=== PATIENT | female | born 1965 | race Caucasian/White ===

== ENCOUNTER 2016-05-27 21:37 | Inpatient (IN) | payer OTHER ==
[~2016-05-27] VITALS: Ht 175.3 cm; Wt 71.0 kg
[~2016-05-27 21:37] MED LIST: ALBUTEROL SULF8.5 GM IH; ALPRAZOLAM1 MG PO; AMBIEN5 MG PO; ATARAX,VISTARIL25 MG PO; ATIVAN0.5 MG PO; AZITHROMYCIN250 MG1 PO; B-1100 MG PO; BLOOD PRESSURE MED PO; BP MEDICATION; CELEXA20 MG PO; CHLORDIAZEPOXID25 MG PO; CLONAZEPAM0.5 MG PO; FLOVENT 11120 INHALA IH; FLOVENT 22120 INHALA IH; FLOVENT 44120 INHALA IH; FLOVENT DISKUS1 DISK IH; FOLIC ACID1 MG PO; GABAPENTIN300 MG PO; HYDROCODON-ACE1 EAC7 PO; INDERAL20 MG PO; KEFLEX500 MG PO; KLONOPIN0.5 M1 PO; LEVAQUIN500 MG PO; LEVAQUIN750 MG PO; LEVOFLOXACIN500 MG PO; LIBRIUM25 MG PO; LOPRESSOR50 MG PO; MACROBID100 MG PO; MEDROL DOSEPAK4 MG PO; METOPROLOL TART50 MG PO; MOBIC15 MG PO; MOTRIN800 MG PO; NABUMETONE750 MG PO; NAPROSYN500 MG PO; NICOTINE PATCH1 EAC2 TD; NOHOMEMEDS; PERCOCET 5/31 TABLET PO; PREDNISONE20 MG PO; PROAIR HFA8.5 GM IH; QUETIAPINE FUMA25 MG PO; QUETIAPINE FUMA50 MG PO; ROBITUSSIN100 MG/5 M PO; SEROQUEL12.5 MG PO; SEROQUEL50 MG PO; SERTRALINE HCL50 MG PO; SPECTRAVITE1 EAC3 PO; THERAGRAN1 TABLET PO; THIAMINE HCL100 MG PO; TRAMADOL HCL50 MG PO; TRAZODONE HCL50 MG PO; ULTRAM50 MG PO; VENTOLIN HFA18 GM IH; VICODIN 5-3001 EACH PO; VITAMIN B-1100 MG PO; XANAX0.25 MG PO; ZESTRIL10 MG PO; ZITHROMAX Z-PA250 MG PO; [UNRECOGNIZED DRUG - OTHER] PO; high blood pressure PO
[2016-05-27 22:05] LABS: HEMATOCRIT 40.1 % (36.0-46.0); MCH 31.5 PG (29.0-34.0); MCHC 34.2 G/DL (30.0-36.0); MCV 92.2 FL (83-99); RBC DIS.WIDTH-CV 13.9 % (11.8-14.6); RED BLOOD COUNT 4.35 M/uL (3.80-5.20); WHITE BLOOD COUNT 4.1 K/uL (4.1-10.2)
[2016-05-27 22:09] LABS: POINT-OF-CARE METER ID UU13113702
[2016-05-27 22:19] LABS: CHLORIDE 100 mEq/L (99-109); SODIUM 142 mEq/L (136-147)
[2016-05-27 22:22] LABS: GLUCOSE 99 mg/dL (70-99)
[2016-05-27 22:23] LABS: ANION GAP 12 MEQ/L (2-14)
[2016-05-27 22:24] LABS: TOTAL BILIRUBIN 0.4 mg/dL (0.0-1.0)
[2016-05-27 22:25] LABS: SERUM ETHYL ALCOHOL 397 mg/dL
[2016-05-27 22:26] LABS: ALKALINE PHOSPHATASE 73 IU/L (3-129); GFR ESTIMATE (CALCULATED) > 59 mL/min/
[2016-05-27 22:27] LABS: UREA NITROGEN (BUN) 6 mg/dL (9-23)
[2016-05-27 22:29] LABS: SALICYLATE < 5.0 MG/DL (15-30)
[2016-05-27 22:35] LABS: POTASSIUM 2.4 mEq/L (3.7-5.4)
[2016-05-28 00:35] LABS: IMM.PLATELET FRACTION 6.1 (1-7); PLATELET COUNT 42 K/uL (156-360)
[2016-05-28 02:56] LABS: BASE EXCESS 3.7 mEq/L (-3 to +3); BICARBONATE 28.5 mEq/L (22-26); CARBOXY HGB 4.1 % (0-5); METHEMOGLOBIN 0.8 % (0-1.5); PCO2 43 mm Hg (35-45); PO2 66 mm Hg (80-100); pH 7.43 (7.35-7.45)
[2016-05-28 02:57] LABS: COMMENTS - BLOOD GASES C+A+; DEVICE NC; O2 FLOW 4 L/MIN; SITE RR; TOTAL RESP RATE 26 resp/min
[2016-05-28 03:31] LABS: INFLUENZA A VIRAL ANTIGEN NEGATIVE; INFLUENZA B VIRAL ANTIGEN NEGATIVE
[2016-05-28 03:53] LABS: ADD MIUA? YES; BILIRUBIN NEGATIVE; BLOOD SMALL; COLOR AMBER ((YELLOW)); GLUCOSE (STRIP) NEGATIVE; KETONES NEGATIVE; LEUKOCYTES MODERATE; NITRITE POSITIVE; PROTEIN (STRIP) 30; SPECIFIC GRAVITY 1.014 (1.000-1.030)
[2016-05-28 04:00] LABS: AMPHETAMINE NEGATIVE (500 ng/mL); BENZODIAZEPINES NEGATIVE (150 ng/mL); COCAINE NEGATIVE (150 ng/mL); METHAMPHETAMINE NEGATIVE (500 ng/mL); OPIATES (MORPHINE) NEGATIVE (100 ng/mL); PHENCYCLIDINE NEGATIVE (25 ng/mL); THC CANNABINOIDS PRESUMPTIVE POSITIVE (50 ng/mL)
[2016-05-28 04:01] LABS: ADD MEDTOX COMMENT Y; BARBITURATES NEGATIVE (200 ng/mL); INTERNAL CONTROLS VALID? YES; METHADONE NEGATIVE (200 ng/mL); OXYCODONE NEGATIVE (100 ng/mL); PROPOXYPHENE NEGATIVE (300 ng/mL); TRICYCLIC ANTIDEPRESSANTS PRESUMPTIVE POSITIVE (300 ng/mL)
[2016-05-28 04:09] LABS: BACTERIA 3+ /HPF; EPITHELIAL CELLS RARE /HPF; MUCUS 4+ /LPF; RED BLOOD CELLS 0-5 /HPF (0-5); UCUL ADDED? NO; WHITE BLOOD CELLS 0-5 /HPF (0-5)
[2016-05-28 06:03] VITALS: BP 157/80
[2016-05-28 10:11] LABS: HEMATOCRIT 39.3 % (36.0-46.0); MCH 31.7 PG (29.0-34.0); MCHC 34.1 G/DL (30.0-36.0); MCV 92.9 FL (83-99); RBC DIS.WIDTH-CV 14.1 % (11.8-14.6); RBC DIS.WIDTH-SD 47.8 % (39-53); RED BLOOD COUNT 4.23 M/uL (3.80-5.20)
[2016-05-28 10:12] LABS: EOSINOPHIL (%) 0.1 % (0-5); IMMATURE GRANULOCYTE (%) 0.8 % (0.0-0.7); IMMATURE GRANULOCYTE COUNT 0.1 K/uL; INSTRUMENT ABS NEUTROPHIL CT 6.5 K/uL; LYMPHOCYTE COUNT 0.8 K/uL (1.0-2.8); MONOCYTE (%) 4.5 % (3-12); MONOCYTE COUNT 0.4 K/uL (0-0.8); NEUTROPHIL (%) 83.5 % (45-76); NEUTROPHIL COUNT 6.5 K/uL (1.8-6.4)
[2016-05-28 10:15] LABS: WHITE BLOOD COUNT 7.8 K/uL (4.1-10.2)
[2016-05-28 10:41] LABS: ANION GAP 16 MEQ/L (2-14); CHLORIDE 97 MEQ/L (99-109); GFR ESTIMATE (CALCULATED) > 59 mL/min/; GLUCOSE 118 mg/dL (70-99); SAMPLE HEMOLYSIS CHECK 0; SAMPLE ICTERIC CHECK 0; SAMPLE LIPEMIA CHECK 0; SODIUM 136 MEQ/L (136-147); UREA NITROGEN (BUN) 4 mg/dL (9-23)
[2016-05-28 10:42] LABS: POTASSIUM 3.3 MEQ/L (3.7-5.4)
[2016-05-28 10:43] LABS: MAGNESIUM 0.7 mg/dl (1.3-2.7)
[2016-05-28 11:25] LABS: IMM.PLATELET FRACTION 5.3 (1-7); MEAN PLAT.VOLUME 11.2 uM^3 (9.5-12.4); PLAT.SUFFICIENCY DECREASED; PLATELET COUNT 33 K/uL (156-360)
[2016-05-28 15:37] VITALS: BP 136/86
[2016-05-28 19:58] LABS: ANION GAP 11 MEQ/L (2-14); CHLORIDE 94 MEQ/L (99-109); GFR ESTIMATE (CALCULATED) > 59 mL/min/; GLUCOSE 107 mg/dL (70-99); POTASSIUM 2.7 MEQ/L (3.7-5.4); SAMPLE HEMOLYSIS CHECK 0; SAMPLE ICTERIC CHECK 0; SAMPLE LIPEMIA CHECK 0; SODIUM 134 MEQ/L (136-147); UREA NITROGEN (BUN) 4 mg/dL (9-23)
[2016-05-28 20:04] LABS: MAGNESIUM 1.9 mg/dl (1.3-2.7)
[2016-05-28 20:15] VITALS: BP 125/86
[2016-05-29] VITALS (15 sets, daily range): BP systolic 111–159; BP diastolic 55–110
[2016-05-29 07:22] LABS: BASOPHIL COUNT 0.1 K/uL (0-0.1); EOSINOPHIL (%) 0.1 % (0-5); HEMATOCRIT 38.7 % (36.0-46.0); IMMATURE GRANULOCYTE (%) 1.5 % (0.0-0.7); IMMATURE GRANULOCYTE COUNT 0.1 K/uL; INSTRUMENT ABS NEUTROPHIL CT 7.1 K/uL; LYMPHOCYTE COUNT 1.3 K/uL (1.0-2.8); MCH 31.4 PG (29.0-34.0); MCHC 34.1 G/DL (30.0-36.0); MCV 92.1 FL (83-99); MONOCYTE (%) 4.4 % (3-12); MONOCYTE COUNT 0.4 K/uL (0-0.8); NEUTROPHIL (%) 78.9 % (45-76); NEUTROPHIL COUNT 7.1 K/uL (1.8-6.4); RBC DIS.WIDTH-CV 13.9 % (11.8-14.6)
[2016-05-29 08:08] LABS: ANION GAP 13 MEQ/L (2-14); CHLORIDE 96 MEQ/L (99-109); GFR ESTIMATE (CALCULATED) > 59 mL/min/; GLUCOSE 98 mg/dL (70-99); SAMPLE HEMOLYSIS CHECK 0; SAMPLE ICTERIC CHECK 0; SAMPLE LIPEMIA CHECK 0; SODIUM 134 MEQ/L (136-147); UREA NITROGEN (BUN) 5 mg/dL (9-23)
[2016-05-29 08:16] LABS: MAGNESIUM 1.3 mg/dl (1.3-2.7); POTASSIUM 3.6 MEQ/L (3.7-5.4)
[2016-05-29 08:20] LABS: MEAN PLAT.VOLUME 12.1 uM^3 (9.5-12.4); PLATELET COUNT 32 K/uL (156-360)
[2016-05-29 08:32] LABS: TROP-I INTERPRETATION NEGATIVE; TROPONIN-I 0.02 ng/mL (0.0-0.30)
[2016-05-29 10:49] LABS: BASE EXCESS -1.4 mEq/L (-3 to +3); BICARBONATE 22.8 mEq/L (22-26); CARBOXY HGB 2.5 % (0-5); METHEMOGLOBIN 1.2 % (0-1.5); pH 7.41 (7.35-7.45)
[2016-05-29 10:50] LABS: COMMENTS - BLOOD GASES A+C+; DEVICE NRB MASK; FI02 100 %; O2 FLOW 15 L/MIN; PCO2 36 mm Hg (35-45); PO2 146 mm Hg (80-100); SITE LR; TOTAL RESP RATE 50 resp/min
[2016-05-29 14:14] LABS: METH RESISTANT S AUREUS PCR NEGATIVE (NEGATIVE)
[2016-05-29 14:15] LABS: PROBE CHECK PASS; SPECIMEN PROCESSING CONTROL PASS
[2016-05-30] VITALS (20 sets, daily range): BP systolic 113–144; BP diastolic 83–112
[2016-05-30 04:07] LABS: BASE EXCESS -0.9 mEq/L (-3 to +3); BICARBONATE 21.6 mEq/L (22-26); CARBOXY HGB 2.4 % (0-5); METHEMOGLOBIN 1.3 % (0-1.5); pH 7.48 (7.35-7.45)
[2016-05-30 04:08] LABS: COMMENTS - BLOOD GASES C+; DEVICE VM; FI02 40 %; O2 FLOW 8 L/MIN; PCO2 29 mm Hg (35-45); PO2 69 mm Hg (80-100); SITE LR; TOTAL RESP RATE 50 resp/min
[2016-05-30 04:18] LABS: EOSINOPHIL (%) 0 % (0-5); HEMATOCRIT 38.3 % (36.0-46.0); IMMATURE GRANULOCYTE (%) 1.2 % (0.0-0.7); IMMATURE GRANULOCYTE COUNT 0.1 K/uL; INSTRUMENT ABS NEUTROPHIL CT 8.4 K/uL; LYMPHOCYTE COUNT 0.5 K/uL (1.0-2.8); MCH 31.6 PG (29.0-34.0); MCHC 33.9 G/DL (30.0-36.0); MCV 93.2 FL (83-99); MONOCYTE (%) 1.9 % (3-12); MONOCYTE COUNT 0.2 K/uL (0-0.8); NEUTROPHIL (%) 91.3 % (45-76); NEUTROPHIL COUNT 8.4 K/uL (1.8-6.4); RBC DIS.WIDTH-CV 13.7 % (11.8-14.6); RBC DIS.WIDTH-SD 46.5 % (39-53); RED BLOOD COUNT 4.11 M/uL (3.80-5.20); WHITE BLOOD COUNT 9.2 K/uL (4.1-10.2)
[2016-05-30 04:24] LABS: CHLORIDE 104 mEq/L (99-109)
[2016-05-30 04:28] LABS: ANION GAP 17 MEQ/L (2-14)
[2016-05-30 04:30] LABS: ALKALINE PHOSPHATASE 67 IU/L (3-129); GFR ESTIMATE (CALCULATED) > 59 mL/min/
[2016-05-30 04:32] LABS: UREA NITROGEN (BUN) 11 mg/dL (9-23)
[2016-05-30 04:33] LABS: GLUCOSE 152 mg/dL (70-99); SODIUM 141 mEq/L (136-147); TOTAL BILIRUBIN 1.7 mg/dL (0.0-1.0)
[2016-05-30 05:09] LABS: MAGNESIUM 1.6 mg/dL (1.3-2.7)
[2016-05-30 05:26] LABS: TROP-I INTERPRETATION NEGATIVE; TROPONIN-I < 0.01 ng/mL (0.0-0.30)
[2016-05-30 05:34] LABS: PLAT.SUFFICIENCY DECREASED
[2016-05-30 05:37] LABS: MEAN PLAT.VOLUME 12.2 uM^3 (9.5-12.4); PLATELET COUNT 40 K/uL (156-360)
[2016-05-30 15:54] LABS: HEMATOCRIT 37.3 % (36.0-46.0); MCHC 34.3 G/DL (30.0-36.0); MCV 93.3 FL (83-99); MEAN PLAT.VOLUME 12.3 uM^3 (9.5-12.4); PLATELET COUNT 51 K/uL (156-360); RBC DIS.WIDTH-CV 13.7 % (11.8-14.6); RBC DIS.WIDTH-SD 47.4 % (39-53); WHITE BLOOD COUNT 7.3 K/uL (4.1-10.2)
[2016-05-30 16:43] LABS: ANION GAP 13 MEQ/L (2-14); CHLORIDE 103 MEQ/L (99-109); GFR ESTIMATE (CALCULATED) > 59 mL/min/; GLUCOSE 200 mg/dL (70-99); MAGNESIUM 1.6 mg/dl (1.3-2.7); SAMPLE HEMOLYSIS CHECK 0; SAMPLE ICTERIC CHECK 0; SAMPLE LIPEMIA CHECK 0; SODIUM 140 MEQ/L (136-147); UREA NITROGEN (BUN) 16 mg/dL (9-23)
[2016-05-30 16:44] LABS: POTASSIUM 2.9 MEQ/L (3.7-5.4)
[2016-05-31] VITALS (24 sets, daily range): BP systolic 111–143; BP diastolic 81–111
[2016-05-31 07:15] LABS: ALKALINE PHOSPHATASE 48 IU/L (3-129); ANION GAP 11 MEQ/L (2-14); CHLORIDE 103 MEQ/L (99-109); GFR ESTIMATE (CALCULATED) > 59 mL/min/; GLUCOSE 183 mg/dL (70-99); POTASSIUM 3.1 MEQ/L (3.7-5.4); SAMPLE HEMOLYSIS CHECK 0; SAMPLE ICTERIC CHECK 0; SAMPLE LIPEMIA CHECK 0; SODIUM 141 MEQ/L (136-147); TOTAL BILIRUBIN 1.4 MG/DL (0.0-1.0); UREA NITROGEN (BUN) 16 mg/dL (9-23)
[2016-05-31 07:16] LABS: MAGNESIUM 1.9 mg/dl (1.3-2.7)
[2016-05-31 07:17] LABS: EOSINOPHIL (%) 0 % (0-5); HEMATOCRIT 34.8 % (36.0-46.0); IMMATURE GRANULOCYTE (%) 0.4 % (0.0-0.7); INSTRUMENT ABS NEUTROPHIL CT 4.4 K/uL; LYMPHOCYTE COUNT 0.4 K/uL (1.0-2.8); MCH 31.5 PG (29.0-34.0); MCHC 33.6 G/DL (30.0-36.0); MCV 93.8 FL (83-99); MEAN PLAT.VOLUME 12.4 uM^3 (9.5-12.4); MONOCYTE (%) 4.4 % (3-12); MONOCYTE COUNT 0.2 K/uL (0-0.8); NEUTROPHIL (%) 87.2 % (45-76); NEUTROPHIL COUNT 4.4 K/uL (1.8-6.4); PLATELET COUNT 65 K/uL (156-360); RBC DIS.WIDTH-CV 13.6 % (11.8-14.6); RBC DIS.WIDTH-SD 46.3 % (39-53); RED BLOOD COUNT 3.71 M/uL (3.80-5.20)
[2016-06-01] VITALS (23 sets, daily range): BP systolic 124–155; BP diastolic 86–107
[2016-06-01 06:10] LABS: EOSINOPHIL (%) 0 % (0-5); HEMATOCRIT 35.1 % (36.0-46.0); IMMATURE GRANULOCYTE (%) 0.4 % (0.0-0.7); INSTRUMENT ABS NEUTROPHIL CT 4.1 K/uL; LYMPHOCYTE COUNT 0.5 K/uL (1.0-2.8); MCHC 34.5 G/DL (30.0-36.0); MCV 92.9 FL (83-99); MEAN PLAT.VOLUME 11.9 uM^3 (9.5-12.4); MONOCYTE (%) 9.3 % (3-12); MONOCYTE COUNT 0.5 K/uL (0-0.8); NEUTROPHIL (%) 80.6 % (45-76); NEUTROPHIL COUNT 4.1 K/uL (1.8-6.4); NRBC (%) 0.4 /100 WBC (0-0); RBC DIS.WIDTH-CV 13.5 % (11.8-14.6); RBC DIS.WIDTH-SD 45.6 % (39-53); RED BLOOD COUNT 3.78 M/uL (3.80-5.20)
[2016-06-01 06:12] LABS: ALKALINE PHOSPHATASE 42 IU/L (3-129); ANION GAP 13 MEQ/L (2-14); CHLORIDE 98 MEQ/L (99-109); GFR ESTIMATE (CALCULATED) > 59 mL/min/; GLUCOSE 171 mg/dL (70-99); POTASSIUM 2.8 MEQ/L (3.7-5.4); SAMPLE HEMOLYSIS CHECK 0; SAMPLE ICTERIC CHECK 0; SAMPLE LIPEMIA CHECK 0; SODIUM 139 MEQ/L (136-147); TOTAL BILIRUBIN 1.2 MG/DL (0.0-1.0); UREA NITROGEN (BUN) 16 mg/dL (9-23)
[2016-06-01 06:13] LABS: MAGNESIUM 1.4 mg/dl (1.3-2.7)
[2016-06-01 06:20] LABS: PLATELET COUNT 91 K/uL (156-360)
[2016-06-01 10:27] LABS: BASE EXCESS 9.6 mEq/L (-3 to +3); BICARBONATE 32.1 mEq/L (22-26); CARBOXY HGB 2.4 % (0-5); COMMENTS - BLOOD GASES +C; DEVICE NC; METHEMOGLOBIN 1.3 % (0-1.5); O2 FLOW 5 L/MIN; PCO2 35 mm Hg (35-45); PO2 62 mm Hg (80-100); SITE RR +A; TOTAL RESP RATE 24 resp/min; pH 7.57 (7.35-7.45)
[2016-06-02] VITALS (23 sets, daily range): BP systolic 101–157; BP diastolic 66–108
[2016-06-02 06:06] LABS: ALKALINE PHOSPHATASE 45 IU/L (3-129); ANION GAP 10 MEQ/L (2-14); CHLORIDE 90 MEQ/L (99-109); GFR ESTIMATE (CALCULATED) > 59 mL/min/; GLUCOSE 170 mg/dL (70-99); MAGNESIUM 1.5 mg/dl (1.3-2.7); POTASSIUM 2.8 MEQ/L (3.7-5.4); SAMPLE HEMOLYSIS CHECK 0; SAMPLE ICTERIC CHECK 0; SAMPLE LIPEMIA CHECK 0; SODIUM 134 MEQ/L (136-147); TOTAL BILIRUBIN 1.1 MG/DL (0.0-1.0); UREA NITROGEN (BUN) 11 mg/dL (9-23)
[2016-06-02 06:31] LABS: EOSINOPHIL (%) 0 % (0-5); IMMATURE GRANULOCYTE (%) 1.2 % (0.0-0.7); IMMATURE GRANULOCYTE COUNT 0.1 K/uL; INSTRUMENT ABS NEUTROPHIL CT 3.2 K/uL; LYMPHOCYTE COUNT 0.6 K/uL (1.0-2.8); MCH 31.3 PG (29.0-34.0); MCHC 34.9 G/DL (30.0-36.0); MCV 89.7 FL (83-99); MONOCYTE (%) 11.3 % (3-12); MONOCYTE COUNT 0.5 K/uL (0-0.8); NEUTROPHIL (%) 74.4 % (45-76); NEUTROPHIL COUNT 3.2 K/uL (1.8-6.4); RBC DIS.WIDTH-CV 12.7 % (11.8-14.6); RBC DIS.WIDTH-SD 41.9 % (39-53); RED BLOOD COUNT 4.35 M/uL (3.80-5.20); WHITE BLOOD COUNT 4.3 K/uL (4.1-10.2)
[2016-06-02 07:36] LABS: PLAT.SUFFICIENCY DECREASED
[2016-06-02 07:39] LABS: PLATELET COUNT 123 K/uL (156-360)
[2016-06-02 09:49] LABS: POINT-OF-CARE METER ID UU14162636
[2016-06-02 16:06] LABS: DIRECT BILIRUBIN 0.2 mg/dL (0.0-0.3); TOTAL BILIRUBIN 1.1 MG/DL (0.0-1.0)
[2016-06-02 16:13] LABS: ALKALINE PHOSPHATASE 42 IU/L (3-129)
[2016-06-03] VITALS (22 sets, daily range): BP systolic 128–168; BP diastolic 82–118
[2016-06-03 06:56] LABS: EOSINOPHIL (%) 0 % (0-5); HEMATOCRIT 42.6 % (36.0-46.0); IMMATURE GRANULOCYTE COUNT 0.1 K/uL; INSTRUMENT ABS NEUTROPHIL CT 4.9 K/uL; LYMPHOCYTE COUNT 0.5 K/uL (1.0-2.8); MCH 31.6 PG (29.0-34.0); MCHC 34.7 G/DL (30.0-36.0); MEAN PLAT.VOLUME 11.1 uM^3 (9.5-12.4); MONOCYTE (%) 9.5 % (3-12); MONOCYTE COUNT 0.6 K/uL (0-0.8); NEUTROPHIL (%) 80.6 % (45-76); NEUTROPHIL COUNT 4.9 K/uL (1.8-6.4); PLAT.SUFFICIENCY ADEQUATE; RBC DIS.WIDTH-SD 42.7 % (39-53); RED BLOOD COUNT 4.68 M/uL (3.80-5.20)
[2016-06-03 06:59] LABS: ALKALINE PHOSPHATASE 46 IU/L (3-129); ANION GAP 11 MEQ/L (2-14); CHLORIDE 95 MEQ/L (99-109); GFR ESTIMATE (CALCULATED) > 59 mL/min/; GLUCOSE 158 mg/dL (70-99); MAGNESIUM 1.6 mg/dl (1.3-2.7); POTASSIUM 3.2 MEQ/L (3.7-5.4); SAMPLE HEMOLYSIS CHECK 0; SAMPLE ICTERIC CHECK 0; SAMPLE LIPEMIA CHECK 0; SODIUM 135 MEQ/L (136-147); TOTAL BILIRUBIN 1.1 MG/DL (0.0-1.0); UREA NITROGEN (BUN) 14 mg/dL (9-23)
[2016-06-03 07:04] LABS: PLATELET COUNT 168 K/uL (156-360)
[2016-06-04] VITALS (23 sets, daily range): BP systolic 106–149; BP diastolic 78–106
[2016-06-04 04:56] LABS: EOSINOPHIL (%) 0.2 % (0-5); IMMATURE GRANULOCYTE COUNT 0.1 K/uL; INSTRUMENT ABS NEUTROPHIL CT 4.6 K/uL; LYMPHOCYTE COUNT 0.7 K/uL (1.0-2.8); MCH 31.2 PG (29.0-34.0); MCHC 33.7 G/DL (30.0-36.0); MCV 92.6 FL (83-99); MEAN PLAT.VOLUME 10.8 uM^3 (9.5-12.4); MONOCYTE (%) 11.5 % (3-12); MONOCYTE COUNT 0.7 K/uL (0-0.8); NEUTROPHIL (%) 75.6 % (45-76); NEUTROPHIL COUNT 4.6 K/uL (1.8-6.4); RBC DIS.WIDTH-CV 13.2 % (11.8-14.6); RBC DIS.WIDTH-SD 45.1 % (39-53); RED BLOOD COUNT 4.43 M/uL (3.80-5.20)
[2016-06-04 04:59] LABS: PLATELET COUNT 259 K/uL (156-360)
[2016-06-04 05:01] LABS: CHLORIDE 102 mEq/L (99-109); SODIUM 139 mEq/L (136-147)
[2016-06-04 05:02] LABS: MAGNESIUM 1.7 mg/dL (1.3-2.7)
[2016-06-04 05:04] LABS: GLUCOSE 154 mg/dL (70-99)
[2016-06-04 05:05] LABS: ANION GAP 9 MEQ/L (2-14)
[2016-06-04 05:06] LABS: POTASSIUM 4.3 mEq/L (3.7-5.4); TOTAL BILIRUBIN 0.6 mg/dL (0.0-1.0)
[2016-06-04 05:07] LABS: ALKALINE PHOSPHATASE 43 IU/L (3-129)
[2016-06-04 05:08] LABS: GFR ESTIMATE (CALCULATED) > 59 mL/min/
[2016-06-04 05:09] LABS: UREA NITROGEN (BUN) 15 mg/dL (9-23)
[2016-06-05] VITALS (22 sets, daily range): BP systolic 100–141; BP diastolic 66–107
[2016-06-05 06:56] LABS: EOSINOPHIL (%) 0.9 % (0-5); EOSINOPHIL COUNT 0.1 K/uL (0-0.3); HEMATOCRIT 44.3 % (36.0-46.0); IMMATURE GRANULOCYTE COUNT 0.1 K/uL; INSTRUMENT ABS NEUTROPHIL CT 5.9 K/uL; LYMPHOCYTE COUNT 1.7 K/uL (1.0-2.8); MCH 31.5 PG (29.0-34.0); MCHC 34.1 G/DL (30.0-36.0); MCV 92.5 FL (83-99); MONOCYTE (%) 13.1 % (3-12); MONOCYTE COUNT 1.2 K/uL (0-0.8); NEUTROPHIL (%) 66.1 % (45-76); NEUTROPHIL COUNT 5.9 K/uL (1.8-6.4); PLATELET COUNT 288 K/uL (156-360); RBC DIS.WIDTH-CV 13.3 % (11.8-14.6); RBC DIS.WIDTH-SD 45.7 % (39-53); RED BLOOD COUNT 4.79 M/uL (3.80-5.20)
[2016-06-05 07:01] LABS: WHITE BLOOD COUNT 8.9 K/uL (4.1-10.2)
[2016-06-05 07:06] LABS: ALKALINE PHOSPHATASE 46 IU/L (3-129); ANION GAP 10 MEQ/L (2-14); CHLORIDE 99 MEQ/L (99-109); GFR ESTIMATE (CALCULATED) > 59 mL/min/; GLUCOSE 85 mg/dL (70-99); MAGNESIUM 1.6 mg/dl (1.3-2.7); SAMPLE HEMOLYSIS CHECK 0; SAMPLE ICTERIC CHECK 0; SAMPLE LIPEMIA CHECK 0; SODIUM 135 MEQ/L (136-147); TOTAL BILIRUBIN 0.9 MG/DL (0.0-1.0); UREA NITROGEN (BUN) 11 mg/dL (9-23)
[2016-06-06] VITALS (10 sets, daily range): BP systolic 100–126; BP diastolic 66–91
[2016-06-06 06:22] LABS: EOSINOPHIL (%) 0.5 % (0-5); EOSINOPHIL COUNT 0.1 K/uL (0-0.3); HEMATOCRIT 42.5 % (36.0-46.0); IMMATURE GRANULOCYTE (%) 0.5 % (0.0-0.7); IMMATURE GRANULOCYTE COUNT 0.1 K/uL; INSTRUMENT ABS NEUTROPHIL CT 7.6 K/uL; MCH 31.5 PG (29.0-34.0); MCHC 33.9 G/DL (30.0-36.0); MEAN PLAT.VOLUME 10.7 uM^3 (9.5-12.4); MONOCYTE (%) 10.2 % (3-12); NEUTROPHIL (%) 77.9 % (45-76); NEUTROPHIL COUNT 7.6 K/uL (1.8-6.4); PLATELET COUNT 284 K/uL (156-360); RBC DIS.WIDTH-CV 13.2 % (11.8-14.6); RBC DIS.WIDTH-SD 45.2 % (39-53); RED BLOOD COUNT 4.57 M/uL (3.80-5.20); WHITE BLOOD COUNT 9.7 K/uL (4.1-10.2)
[2016-06-06 07:28] LABS: ALKALINE PHOSPHATASE 48 IU/L (3-129); ANION GAP 10 MEQ/L (2-14); CHLORIDE 97 MEQ/L (99-109); GFR ESTIMATE (CALCULATED) > 59 mL/min/; MAGNESIUM 1.6 mg/dl (1.3-2.7); POTASSIUM 3.6 MEQ/L (3.7-5.4); SAMPLE HEMOLYSIS CHECK 0; SAMPLE ICTERIC CHECK 0; SAMPLE LIPEMIA CHECK 0; SODIUM 136 MEQ/L (136-147); TOTAL BILIRUBIN 0.9 MG/DL (0.0-1.0); UREA NITROGEN (BUN) 7 mg/dL (9-23)
[2016-06-06 07:40] LABS: GLUCOSE 110 mg/dL (70-99)
[2016-06-07] VITALS: BP 115/83
[2016-06-07 04:00] VITALS: BP 115/76
[2016-06-07 06:08] LABS: EOSINOPHIL (%) 2.8 % (0-5); EOSINOPHIL COUNT 0.2 K/uL (0-0.3); HEMATOCRIT 41.5 % (36.0-46.0); IMMATURE GRANULOCYTE (%) 0.6 % (0.0-0.7); IMMATURE GRANULOCYTE COUNT 0.1 K/uL; INSTRUMENT ABS NEUTROPHIL CT 4.3 K/uL; LYMPHOCYTE COUNT 2.1 K/uL (1.0-2.8); MCH 31.4 PG (29.0-34.0); MCHC 33.7 G/DL (30.0-36.0); MEAN PLAT.VOLUME 10.5 uM^3 (9.5-12.4); MONOCYTE (%) 13.9 % (3-12); MONOCYTE COUNT 1.1 K/uL (0-0.8); NEUTROPHIL (%) 55.6 % (45-76); NEUTROPHIL COUNT 4.3 K/uL (1.8-6.4); PLATELET COUNT 275 K/uL (156-360); RBC DIS.WIDTH-CV 13.3 % (11.8-14.6); RBC DIS.WIDTH-SD 45.3 % (39-53); RED BLOOD COUNT 4.46 M/uL (3.80-5.20); WHITE BLOOD COUNT 7.8 K/uL (4.1-10.2)
[2016-06-07 08:00] VITALS: BP 111/67
[2016-06-07 12:00] VITALS: BP 111/76
[2016-06-07 20:00] VITALS: BP 90/70
[2016-06-07 22:00] VITALS: BP 107/73
[2016-06-08] VITALS (8 sets, daily range): BP systolic 104–129; BP diastolic 71–84
[2016-06-08 08:16] LABS: EOSINOPHIL (%) 2.9 % (0-5); EOSINOPHIL COUNT 0.3 K/uL (0-0.3); HEMATOCRIT 40.8 % (36.0-46.0); IMMATURE GRANULOCYTE (%) 0.7 % (0.0-0.7); IMMATURE GRANULOCYTE COUNT 0.1 K/uL; LYMPHOCYTE COUNT 2.2 K/uL (1.0-2.8); MCH 31.7 PG (29.0-34.0); MCHC 33.3 G/DL (30.0-36.0); MCV 95.1 FL (83-99); MEAN PLAT.VOLUME 10.6 uM^3 (9.5-12.4); MONOCYTE (%) 14.1 % (3-12); MONOCYTE COUNT 1.3 K/uL (0-0.8); NEUTROPHIL (%) 56.7 % (45-76); PLATELET COUNT 257 K/uL (156-360); RBC DIS.WIDTH-CV 13.6 % (11.8-14.6); RBC DIS.WIDTH-SD 47.6 % (39-53); RED BLOOD COUNT 4.29 M/uL (3.80-5.20); WHITE BLOOD COUNT 8.9 K/uL (4.1-10.2)
[2016-06-09] VITALS (9 sets, daily range): BP systolic 93–126; BP diastolic 74–90
[2016-06-09 08:58] LABS: ANION GAP 11 MEQ/L (2-14); CHLORIDE 101 MEQ/L (99-109); POTASSIUM 3.4 MEQ/L (3.7-5.4); SAMPLE HEMOLYSIS CHECK 0; SAMPLE ICTERIC CHECK 0; SAMPLE LIPEMIA CHECK 0; SODIUM 141 MEQ/L (136-147)
[2016-06-09 09:06] LABS: GFR ESTIMATE (CALCULATED) > 59 mL/min/; GLUCOSE 84 mg/dL (70-99); UREA NITROGEN (BUN) 11 mg/dL (9-23)
[2016-06-10 07:53] VITALS: BP 133/81
[2016-06-10 13:35] VITALS: BP 101/69
[2016-06-10 15:17] VITALS: BP 108/77
[2016-06-10 16:38] LABS: BASE EXCESS 3.6 mEq/L (-3 to +3); BICARBONATE 26.3 mEq/L (22-26); CARBOXY HGB 2.4 % (0-5); METHEMOGLOBIN 1.4 % (0-1.5); PCO2 33 mm Hg (35-45); pH 7.51 (7.35-7.45)
[2016-06-10 16:39] LABS: COMMENTS - BLOOD GASES A+C+; DEVICE NC; O2 FLOW 3 L/MIN; PO2 46 mm Hg (80-100); SITE LR; TOTAL RESP RATE 28 resp/min
[2016-06-10 19:52] VITALS: BP 106/78
[2016-06-11 00:27] VITALS: BP 140/91
[2016-06-11 08:51] VITALS: BP 125/89
[2016-06-11 11:43] VITALS: BP 95/63
[2016-06-11 16:03] VITALS: BP 12/72
[2016-06-11 19:15] VITALS: BP 119/73
[2016-06-11 22:08] VITALS: BP 120/85
[2016-06-12 02:44] VITALS: BP 118/78
[2016-06-12 08:25] VITALS: BP 129/80
[2016-06-12 09:27] LABS: EOSINOPHIL (%) 0 % (0-5); HEMATOCRIT 36.3 % (36.0-46.0); IMMATURE GRANULOCYTE (%) 0.6 % (0.0-0.7); INSTRUMENT ABS NEUTROPHIL CT 5.7 K/uL; LYMPHOCYTE COUNT 0.7 K/uL (1.0-2.8); MCH 31.9 PG (29.0-34.0); MCHC 34.2 G/DL (30.0-36.0); MCV 93.3 FL (83-99); MEAN PLAT.VOLUME 11.1 uM^3 (9.5-12.4); MONOCYTE COUNT 0.2 K/uL (0-0.8); NEUTROPHIL COUNT 5.7 K/uL (1.8-6.4); PLATELET COUNT 221 K/uL (156-360); RBC DIS.WIDTH-CV 12.9 % (11.8-14.6); RBC DIS.WIDTH-SD 44.4 % (39-53); RED BLOOD COUNT 3.89 M/uL (3.80-5.20); WHITE BLOOD COUNT 6.6 K/uL (4.1-10.2)
[2016-06-12 09:52] LABS: ANION GAP 12 MEQ/L (2-14); CHLORIDE 103 MEQ/L (99-109); GFR ESTIMATE (CALCULATED) > 59 mL/min/; GLUCOSE 136 mg/dL (70-99); SAMPLE HEMOLYSIS CHECK 0; SAMPLE ICTERIC CHECK 0; SAMPLE LIPEMIA CHECK 0; SODIUM 140 MEQ/L (136-147); UREA NITROGEN (BUN) 12 mg/dL (9-23)
[2016-06-12 09:53] LABS: POTASSIUM 4.1 MEQ/L (3.7-5.4)
[2016-06-12 13:23] VITALS: BP 114/88
[2016-06-12 16:27] VITALS: BP 127/88
[2016-06-12 23:35] VITALS: BP 118/81
[2016-06-13 04:00] VITALS: BP 149/99
[2016-06-13 08:19] VITALS: BP 117/81
[2016-06-13 15:00] VITALS: BP 120/92
[2016-06-13 20:00] VITALS: BP 133/101
[2016-06-13 23:50] VITALS: BP 137/79
[2016-06-14 06:40] VITALS: BP 126/86
[2016-06-14 15:40] VITALS: BP 125/84
[2016-06-14 22:53] VITALS: BP 126/82
[2016-06-15 07:12] LABS: EOSINOPHIL (%) 0.2 % (0-5); HEMATOCRIT 37.7 % (36.0-46.0); IMMATURE GRANULOCYTE (%) 0.9 % (0.0-0.7); IMMATURE GRANULOCYTE COUNT 0.1 K/uL; INSTRUMENT ABS NEUTROPHIL CT 4.9 K/uL; LYMPHOCYTE COUNT 0.6 K/uL (1.0-2.8); MCH 31.3 PG (29.0-34.0); MCHC 33.2 G/DL (30.0-36.0); MCV 94.5 FL (83-99); MEAN PLAT.VOLUME 10.9 uM^3 (9.5-12.4); MONOCYTE (%) 3.2 % (3-12); MONOCYTE COUNT 0.2 K/uL (0-0.8); NEUTROPHIL COUNT 4.9 K/uL (1.8-6.4); PLATELET COUNT 213 K/uL (156-360); RBC DIS.WIDTH-CV 12.9 % (11.8-14.6); RBC DIS.WIDTH-SD 44.4 % (39-53); RED BLOOD COUNT 3.99 M/uL (3.80-5.20); WHITE BLOOD COUNT 5.7 K/uL (4.1-10.2)
[2016-06-15 07:28] LABS: ANION GAP 10 MEQ/L (2-14); CHLORIDE 102 MEQ/L (99-109); GFR ESTIMATE (CALCULATED) > 59 mL/min/; GLUCOSE 136 mg/dL (70-99); POTASSIUM 4.3 MEQ/L (3.7-5.4); SAMPLE HEMOLYSIS CHECK 0; SAMPLE ICTERIC CHECK 0; SAMPLE LIPEMIA CHECK 0; SODIUM 138 MEQ/L (136-147); UREA NITROGEN (BUN) 15 mg/dL (9-23)
[2016-06-15 08:00] VITALS: BP 127/91
[2016-06-15 15:56] VITALS: BP 100/73
[2016-06-16 08:00] VITALS: BP 96/61
[2016-06-16 10:02] VITALS: BP 98/52
[2016-06-16 11:30] VITALS: BP 90/60
[2016-06-16 15:54] VITALS: BP 98/67
[2016-06-16 20:07] VITALS: BP 112/77
[2016-06-17 08:00] VITALS: BP 114/86
[2016-06-17 16:00] VITALS: BP 102/72
[2016-06-17 22:50] VITALS: BP 123/83
[2016-06-18 07:32] VITALS: BP 113/80
[2016-06-18 23:23] VITALS: BP 127/84
[2016-06-19 07:24] VITALS: BP 120/78
[2016-06-19 16:11] VITALS: BP 125/81
[2016-06-19 23:46] VITALS: BP 132/69
[2016-06-20 07:27] VITALS: BP 108/73
[2016-06-20 16:22] VITALS: BP 105/62
[2016-06-20 22:42] VITALS: BP 119/71
[2016-06-21 07:41] VITALS: BP 129/75
[2016-06-21 16:48] VITALS: BP 116/68
[2016-06-21 22:57] VITALS: BP 113/72
[2016-06-22 08:34] VITALS: BP 116/64
[2016-06-22 16:43] VITALS: BP 117/70
[2016-06-22 23:18] VITALS: BP 117/69
[2016-06-23 01:00] VITALS: BP 115/64
[2016-06-23 07:56] VITALS: BP 124/85
[2016-06-23 17:09] VITALS: BP 106/59
[2016-06-23 22:30] VITALS: BP 112/70
[2016-06-24 09:35] VITALS: BP 125/93
[2016-06-24 17:11] VITALS: BP 114/77
[2016-06-24 22:38] VITALS: BP 115/72
[2016-06-25 07:22] VITALS: BP 109/78
[2016-06-25 15:45] VITALS: BP 102/71
[2016-06-25 23:37] VITALS: BP 119/61
[2016-06-26 08:35] VITALS: BP 121/62
[2016-06-26 16:38] VITALS: BP 105/73
[2016-06-26 23:58] VITALS: BP 126/73
[2016-06-27 09:45] VITALS: BP 123/85
[2016-06-27 11:44] LABS: POINT-OF-CARE METER ID UU13113725
[2016-06-27 15:52] VITALS: BP 115/76
[2016-06-27 22:25] VITALS: BP 123/76
[2016-06-28 07:53] VITALS: BP 124/79
[2016-06-28 16:46] VITALS: BP 97/52
[2016-06-28] MEDS ORDERED: FOLIC ACID1 MG PO (17:41)
[2016-06-28] MEDS ORDERED: GEODON40 MG PO (17:41)
[2016-06-28] MEDS ORDERED: Thiamine,Vitamin B1 PO (17:41)
[2016-06-28] MEDS ORDERED: XARELTO20 MG PO (17:41)
[2016-06-28] MEDS ORDERED: XARELTO15 MG PO (17:41)
[2016-06-28] MEDS ORDERED: DILTIAZEM 24HR180 MG PO (17:41)
[2016-06-28] MEDS ORDERED: FAMOTIDINE20 MG PO (17:41)
[2016-06-28] MEDS ORDERED: DIGOXIN250 MCG PO (17:41)
== END 2016-06-28 18:19 | disposition home or self-care (01) | DRG 166 ==
LOC: EME → EDBD 21:37 → 4EAST 05-28 05:06 → 5EAST 05-28 05:06 → 4WEST 05-28 05:06 → EDOF 05-28 05:06 → 4EAST 05-28 05:53 → 4WEST 05-29 12:04 → 5EAST 06-09 21:24
PROVIDERS: Emergency Medicine; Hospitalist; Internal Medicine; Internal Medicine Critical Care Medicine; Internal Medicine Nephrology; Student in an Organized Health Care Education/Training Program
PROC: 06V03DZ Restriction of Inferior Vena Cava with Intraluminal Device, Percutaneous Approach (ICD-10-PCS; principal; 2016-06-15)
DX: J69.0 Pneumonitis due to inhalation of food and vomit (principal); J96.01 Acute respiratory failure with hypoxia; I26.99 Other pulmonary embolism without acute cor pulmonale; N39.0 Urinary tract infection, site not specified; J44.1 Chronic obstructive pulmonary disease with (acute) exacerbation; R45.851 Suicidal ideations; I82.411 Acute embolism and thrombosis of right femoral vein; I82.431 Acute embolism and thrombosis of right popliteal vein; I82.491 Acute embolism and thrombosis of other specified deep vein of right lower extremity; E87.4 Mixed disorder of acid-base balance; F10.231 Alcohol dependence with withdrawal delirium; F10.229 Alcohol dependence with intoxication, unspecified; Y90.8 Blood alcohol level of 240 mg/100 ml or more; I48.91 Unspecified atrial fibrillation; F32.9 Major depressive disorder, single episode, unspecified; F41.9 Anxiety disorder, unspecified; E78.5 Hyperlipidemia, unspecified; E87.6 Hypokalemia; I10 Essential (primary) hypertension; D69.59 Other secondary thrombocytopenia; F17.200 Nicotine dependence, unspecified, uncomplicated; Z91.19 Patient's noncompliance with other medical treatment and regimen; F17.210 Nicotine dependence, cigarettes, uncomplicated; E83.42 Hypomagnesemia; J45.909 Unspecified asthma, uncomplicated
CPT/HCPCS: 31720; 36600; 70450; 71010; 71250; 71275; 80048; 80048 91; 80053; 80076; 80162; 80306 90; 81003; 82140; 82607; 82746; 82803; 82948; 83605; 83735; 83880; 84100; 84484; 84999; 85025; 85025 91; 85027; 87040; 87070; 87205; 87502; 87641; 93005; 93306; 93970; 94640; 94640 76; 94667; 94668; 94760; 94799; 97530 GO; 97530 GP; 99202; 99281; 99285; C1769; C1894; G0480; J0295; J0360; J0696; J1630; J1644; J1650; J1885; J1940; J1956; J2060; J2250; J2543; J2560; J2920; J2930; J3010; J3360; J3370; J3411; J3475; J3480; J3486; J7030; J7050; J7120; J7512; S0020; S0028; S0030

== ENCOUNTER 2016-07-24 16:33 | Inpatient (IN) | payer OTHER ==
[~2016-07-24] VITALS: Ht 175.3 cm; Wt 79.5 kg
[~2016-07-24 16:33] MED LIST changes: +DIGOXIN250 MCG PO; +DILTIAZEM 24HR180 MG PO; +FAMOTIDINE20 MG PO; +GEODON40 MG PO; +Thiamine,Vitamin B1 PO; +XARELTO15 MG PO; +XARELTO20 MG PO
[2016-07-24 17:40] LABS: BASOPHIL COUNT 0.1 K/uL (0-0.1); EOSINOPHIL (%) 2.5 % (0-5); EOSINOPHIL COUNT 0.1 K/uL (0-0.3); HEMATOCRIT 37.9 % (36.0-46.0); IMMATURE GRANULOCYTE (%) 1.1 % (0.0-0.7); IMMATURE GRANULOCYTE COUNT 0.1 K/uL; INSTRUMENT ABS NEUTROPHIL CT 3.1 K/uL; LYMPHOCYTE COUNT 1.4 K/uL (1.0-2.8); MCH 31.2 PG (29.0-34.0); MCHC 32.5 G/DL (30.0-36.0); MCV 96.2 FL (83-99); MEAN PLAT.VOLUME 8.7 uM^3 (9.5-12.4); MONOCYTE COUNT 0.5 K/uL (0-0.8); NEUTROPHIL (%) 59.1 % (45-76); NEUTROPHIL COUNT 3.1 K/uL (1.8-6.4); PLATELET COUNT 271 K/uL (156-360); RBC DIS.WIDTH-CV 16.9 % (11.8-14.6); RED BLOOD COUNT 3.94 M/uL (3.80-5.20); WHITE BLOOD COUNT 5.2 K/uL (4.1-10.2)
[2016-07-24 17:48] LABS: CHLORIDE 102 mEq/L (99-109); POTASSIUM 3.3 mEq/L (3.7-5.4); SODIUM 140 mEq/L (136-147)
[2016-07-24 17:50] LABS: GLUCOSE 109 mg/dL (70-99)
[2016-07-24 17:51] LABS: ANION GAP 13 MEQ/L (2-14); INTER. NORMALIZED RATIO 1.3; PROTHROMBIN TIME 13.8 (9.2-11.2); PTT 28.6 (25-32)
[2016-07-24 17:52] LABS: TOTAL BILIRUBIN 0.6 mg/dL (0.0-1.0)
[2016-07-24 17:53] LABS: ALKALINE PHOSPHATASE 82 IU/L (3-129)
[2016-07-24 17:54] LABS: GFR ESTIMATE (CALCULATED) > 59 mL/min/
[2016-07-24 17:55] LABS: UREA NITROGEN (BUN) 3 mg/dL (9-23)
[2016-07-24 17:59] LABS: SERUM ETHYL ALCOHOL 157 mg/dL
[2016-07-24 22:26] VITALS: BP 97/52
[2016-07-25 02:41] LABS: HEMATOCRIT 33.9 % (36.0-46.0); MCH 31.3 PG (29.0-34.0); MCHC 32.4 G/DL (30.0-36.0); MCV 96.3 FL (83-99); MEAN PLAT.VOLUME 9.1 uM^3 (9.5-12.4); PLATELET COUNT 247 K/uL (156-360); RBC DIS.WIDTH-CV 17.2 % (11.8-14.6); RBC DIS.WIDTH-SD 59.9 % (39-53); RED BLOOD COUNT 3.52 M/uL (3.80-5.20); WHITE BLOOD COUNT 4.8 K/uL (4.1-10.2)
[2016-07-25 07:22] VITALS: BP 127/68
[2016-07-25] MEDS ORDERED: CHLORDIAZEPOXID25 MG PO (15:40)
[2016-07-25] MEDS ORDERED: Tylenol Extra Streng PO (15:40)
[2016-07-25] MEDS ORDERED: GEODON40 MG PO (15:40)
[2016-07-25] MEDS ORDERED: Thiamine,Vitamin B1 PO (15:40)
[2016-07-25] MEDS ORDERED: FOLIC ACID1 MG PO (15:40)
[2016-07-25] MEDS ORDERED: CARDIZEM30 MG PO (15:41)
[2016-07-25] MEDS ORDERED: HEPARIN SO25000 UNIT IV (15:46)
[2016-07-25 17:06] VITALS: BP 130/64
[2016-07-25 18:52] VITALS: BP 105/65
[2016-07-25 22:45] VITALS: BP 118/59
[2016-07-26 03:21] VITALS: BP 101/63
[2016-07-26 07:12] VITALS: BP 114/78
[2016-07-26 09:09] LABS: POC NON-PRINT COM 1 ND
[2016-07-26 11:40] VITALS: BP 122/73
[2016-07-26 16:05] VITALS: BP 125/76
[2016-07-26 18:44] LABS: ANION GAP 12 MEQ/L (2-14); CHLORIDE 102 MEQ/L (99-109); GFR ESTIMATE (CALCULATED) > 59 mL/min/; GLUCOSE 108 mg/dL (70-99); POTASSIUM 3.3 MEQ/L (3.7-5.4); SAMPLE HEMOLYSIS CHECK 0; SAMPLE ICTERIC CHECK 0; SAMPLE LIPEMIA CHECK 0; SODIUM 141 MEQ/L (136-147); UREA NITROGEN (BUN) 4 mg/dL (9-23)
[2016-07-26 19:10] VITALS: BP 98/74
[2016-07-26 23:59] VITALS: BP 111/68
[2016-07-27 04:46] VITALS: BP 122/71
== END 2016-07-27 06:25 | disposition short-term general hospital (02) | DRG 301 ==
LOC: EME 16:33 → EDOF 20:15 → 5EAST 20:15
PROVIDERS: Internal Medicine; Physician Assistant
DX: I82.423 Acute embolism and thrombosis of iliac vein, bilateral (principal); Z86.711 Personal history of pulmonary embolism; F10.10 Alcohol abuse, uncomplicated; F29 Unspecified psychosis not due to a substance or known physiological condition; Z95.828 Presence of other vascular implants and grafts; Z79.01 Long term (current) use of anticoagulants; F17.210 Nicotine dependence, cigarettes, uncomplicated; Z91.19 Patient's noncompliance with other medical treatment and regimen; I48.2 Chronic atrial fibrillation
CPT/HCPCS: 73610; 80048; 80053; 82272; 85025; 85027; 85610; 85730; 93970; 99281; 99285; G0480

== ENCOUNTER 2016-09-03 09:25 | Emergency (ER) | payer OTHER ==
[~2016-09-03] VITALS: Ht 175.3 cm; Wt 84.0 kg
[~2016-09-03 09:25] MED LIST changes: +CARDIZEM30 MG PO; +HEPARIN SO25000 UNIT IV; +Tylenol Extra Streng PO
[2016-09-03 12:03] VITALS: BP 107/78
== END 2016-09-03 12:04 | disposition left against medical advice (07) ==
LOC: EME 09:25
DX: M79.605 Pain in left leg (principal); M79.604 Pain in right leg; R06.02 Shortness of breath; E78.5 Hyperlipidemia, unspecified; I10 Essential (primary) hypertension; Z86.718 Personal history of other venous thrombosis and embolism; F17.200 Nicotine dependence, unspecified, uncomplicated
CPT/HCPCS: 71020; 80048; 80162; 84484; 85025; 85610; 85730; 93005; 99281; 99283; J2060; J7030

== ENCOUNTER 2016-11-01 12:06 | Inpatient (IN) | payer OTHER ==
[~2016-11-01] VITALS: Ht 175.3 cm; Wt 75.5 kg
[2016-11-01 12:55] LABS: HEMATOCRIT 41.6 % (36.0-46.0); MCH 28.3 PG (29.0-34.0); MCHC 33.4 G/DL (30.0-36.0); MCV 84.7 FL (83-99); MEAN PLAT.VOLUME 12.1 uM^3 (9.5-12.4); PLATELET COUNT 57 K/uL (156-360); RBC DIS.WIDTH-CV 15.9 % (11.8-14.6); RBC DIS.WIDTH-SD 48.5 % (39-53); RED BLOOD COUNT 4.91 M/uL (3.80-5.20); WHITE BLOOD COUNT 6.2 K/uL (4.1-10.2)
[2016-11-01 13:05] LABS: CHLORIDE 97 mEq/L (99-109); SODIUM 136 mEq/L (136-147)
[2016-11-01 13:07] LABS: GLUCOSE 103 mg/dL (70-99)
[2016-11-01 13:08] LABS: ANION GAP 15 MEQ/L (2-14)
[2016-11-01 13:10] LABS: POTASSIUM 2.4 mEq/L (3.7-5.4)
[2016-11-01 13:11] LABS: GFR ESTIMATE (CALCULATED) > 59 mL/min/; UREA NITROGEN (BUN) 6 mg/dL (9-23)
[2016-11-01 13:20] LABS: TROP-I INTERPRETATION NEGATIVE; TROPONIN-I 0.03 ng/mL (0.0-0.30)
[2016-11-01 18:13] LABS: BASE EXCESS 1.7 mEq/L (-3 to +3); BICARBONATE 24.4 mEq/L (22-26); METHEMOGLOBIN 0.8 % (0-1.5); PCO2 32 mm Hg (35-45); PO2 52 mm Hg (80-100); pH 7.49 (7.35-7.45)
[2016-11-01 18:14] LABS: COMMENTS - BLOOD GASES A+C+; FI02 21 %; SITE LR
[2016-11-01 23:00] LABS: CHLORIDE 96 mEq/L (99-109); POTASSIUM 2.6 mEq/L (3.7-5.4); SODIUM 139 mEq/L (136-147)
[2016-11-01 23:02] LABS: GLUCOSE 100 mg/dL (70-99)
[2016-11-01 23:03] LABS: ANION GAP 17 MEQ/L (2-14)
[2016-11-01 23:04] LABS: TOTAL BILIRUBIN 3.6 mg/dL (0.0-1.0)
[2016-11-01 23:05] LABS: ALKALINE PHOSPHATASE 90 IU/L (3-129)
[2016-11-01 23:06] LABS: GFR ESTIMATE (CALCULATED) > 59 mL/min/
[2016-11-01 23:07] LABS: UREA NITROGEN (BUN) 4 mg/dL (9-23)
[2016-11-01 23:10] VITALS: BP 145/101
[2016-11-02] VITALS (11 sets, daily range): BP systolic 86–144; BP diastolic 54–107
[2016-11-02 05:41] LABS: BASOPHIL COUNT 0.1 K/uL (0-0.1); EOSINOPHIL (%) 0.2 % (0-5); HEMATOCRIT 37.8 % (36.0-46.0); IMMATURE GRANULOCYTE (%) 0.3 % (0.0-0.7); INSTRUMENT ABS NEUTROPHIL CT 3.6 K/uL; LYMPHOCYTE COUNT 1.5 K/uL (1.0-2.8); MCH 29.1 PG (29.0-34.0); MCHC 34.4 G/DL (30.0-36.0); MCV 84.6 FL (83-99); MONOCYTE COUNT 0.6 K/uL (0-0.8); NEUTROPHIL (%) 62.4 % (45-76); NEUTROPHIL COUNT 3.6 K/uL (1.8-6.4); RBC DIS.WIDTH-CV 15.9 % (11.8-14.6); RBC DIS.WIDTH-SD 48.9 % (39-53); RED BLOOD COUNT 4.47 M/uL (3.80-5.20); WHITE BLOOD COUNT 5.7 K/uL (4.1-10.2)
[2016-11-02 07:09] LABS: IMM.PLATELET FRACTION 12.4 (1-7); MEAN PLAT.VOLUME 11.2 uM^3 (9.5-12.4); PLAT.SUFFICIENCY DECREASED; PLATELET COUNT 46 K/uL (156-360)
[2016-11-02 13:11] LABS: ANION GAP 10 MEQ/L (2-14); CHLORIDE 99 MEQ/L (99-109); GFR ESTIMATE (CALCULATED) > 59 mL/min/; GLUCOSE 114 mg/dL (70-99); SAMPLE HEMOLYSIS CHECK 0; SAMPLE ICTERIC CHECK 0; SAMPLE LIPEMIA CHECK 0; SODIUM 139 MEQ/L (136-147); UREA NITROGEN (BUN) 7 mg/dL (9-23)
[2016-11-02 13:13] LABS: MAGNESIUM 2.1 mg/dl (1.3-2.7); POTASSIUM 3.5 MEQ/L (3.7-5.4)
[2016-11-02 14:30] LABS: BILIRUBIN NEGATIVE; BLOOD NEGATIVE; COLOR AMBER ((YELLOW)); GLUCOSE (STRIP) NEGATIVE; KETONES NEGATIVE; LEUKOCYTES NEGATIVE; NITRITE NEGATIVE; PROTEIN (STRIP) 30; SPECIFIC GRAVITY 1.028 (1.000-1.030)
[2016-11-02 14:32] LABS: ADD MIUA? NO
[2016-11-03 03:21] VITALS: BP 112/78
[2016-11-03 06:57] LABS: BASOPHIL COUNT 0.1 K/uL (0-0.1); EOSINOPHIL (%) 1.4 % (0-5); EOSINOPHIL COUNT 0.1 K/uL (0-0.3); HEMATOCRIT 38.3 % (36.0-46.0); IMMATURE GRANULOCYTE (%) 0.6 % (0.0-0.7); INSTRUMENT ABS NEUTROPHIL CT 4.4 K/uL; MCH 29.9 PG (29.0-34.0); MCHC 34.5 G/DL (30.0-36.0); MCV 86.8 FL (83-99); MEAN PLAT.VOLUME 13.7 uM^3 (9.5-12.4); MONOCYTE (%) 6.3 % (3-12); MONOCYTE COUNT 0.4 K/uL (0-0.8); NEUTROPHIL (%) 63.2 % (45-76); NEUTROPHIL COUNT 4.4 K/uL (1.8-6.4); PLATELET COUNT 64 K/uL (156-360); RBC DIS.WIDTH-CV 16.9 % (11.8-14.6); RBC DIS.WIDTH-SD 52.7 % (39-53); RED BLOOD COUNT 4.41 M/uL (3.80-5.20)
[2016-11-03 07:19] LABS: ANION GAP 8 MEQ/L (2-14); CHLORIDE 98 MEQ/L (99-109); GFR ESTIMATE (CALCULATED) > 59 mL/min/; POTASSIUM 3.5 MEQ/L (3.7-5.4); SAMPLE HEMOLYSIS CHECK 0; SAMPLE ICTERIC CHECK 0; SAMPLE LIPEMIA CHECK 0; SODIUM 137 MEQ/L (136-147); UREA NITROGEN (BUN) 12 mg/dL (9-23)
[2016-11-03 07:20] LABS: GLUCOSE 84 mg/dL (70-99)
[2016-11-04] MEDS ORDERED: VENTOLIN HFA18 GM IH (19:39)
[2016-11-04] MEDS ORDERED: GABAPENTIN100 MG PO (19:39)
[2016-11-04] MEDS ORDERED: FOLIC ACID1 MG PO (19:39)
== END 2016-11-03 14:35 | disposition left against medical advice (07) | DRG 308 ==
LOC: EME → EDBD 12:06 → EME 12:06 → EDOF 20:18 → 4EAST 20:18 → ENRESERV 20:20 → 4EAST 23:01
PROVIDERS: Emergency Medicine; Internal Medicine
DX: I48.1 Persistent atrial fibrillation (principal); J18.9 Pneumonia, unspecified organism; F10.288 Alcohol dependence with other alcohol-induced disorder; D61.818 Other pancytopenia; T51.0X1A Toxic effect of ethanol, accidental (unintentional), initial encounter; I48.2 Chronic atrial fibrillation; I71.2 Thoracic aortic aneurysm, without rupture; I27.2 Other secondary pulmonary hypertension; E83.42 Hypomagnesemia; E87.6 Hypokalemia; I10 Essential (primary) hypertension; I51.7 Cardiomegaly; K70.30 Alcoholic cirrhosis of liver without ascites; F43.23 Adjustment disorder with mixed anxiety and depressed mood; F60.9 Personality disorder, unspecified; F29 Unspecified psychosis not due to a substance or known physiological condition; I25.10 Atherosclerotic heart disease of native coronary artery without angina pectoris; I35.1 Nonrheumatic aortic (valve) insufficiency; E78.5 Hyperlipidemia, unspecified; F17.210 Nicotine dependence, cigarettes, uncomplicated; Z91.19 Patient's noncompliance with other medical treatment and regimen; Z86.711 Personal history of pulmonary embolism; Z86.718 Personal history of other venous thrombosis and embolism; Z86.73 Personal history of transient ischemic attack (TIA), and cerebral infarction without residual deficits; Z82.49 Family history of ischemic heart disease and other diseases of the circulatory system
CPT/HCPCS: 36600; 71020; 71275; 80048; 80053; 81003; 82607; 82746; 82803; 83735; 84484; 85025; 85027; 85379; 87040; 93005; 94640; 94644; 94799; 99202; 99281; 99285; J0696; J1650; J1940; J1956; J2060; J3411; J3475; J3480; J7050

== ENCOUNTER 2016-11-04 15:39 | Inpatient (IN) | payer OTHER ==
[~2016-11-04] VITALS: Ht 175.3 cm; Wt 72.6 kg
[2016-11-04 17:38] LABS: HEMATOCRIT 44.1 % (36.0-46.0); MCH 29.5 PG (29.0-34.0); MCHC 33.8 G/DL (30.0-36.0); MCV 87.3 FL (83-99); MEAN PLAT.VOLUME 11.7 uM^3 (9.5-12.4); PLATELET COUNT 101 K/uL (156-360); RBC DIS.WIDTH-CV 17.7 % (11.8-14.6); RBC DIS.WIDTH-SD 54.1 % (39-53); RED BLOOD COUNT 5.05 M/uL (3.80-5.20); WHITE BLOOD COUNT 4.9 K/uL (4.1-10.2)
[2016-11-04 17:42] LABS: CHLORIDE 98 mEq/L (99-109); POTASSIUM 3.2 mEq/L (3.7-5.4); SODIUM 139 mEq/L (136-147)
[2016-11-04 17:44] LABS: GLUCOSE 96 mg/dL (70-99)
[2016-11-04 17:46] LABS: ANION GAP 14 MEQ/L (2-14)
[2016-11-04 17:47] LABS: SERUM ETHYL ALCOHOL < 10 mg/dL
[2016-11-04 17:48] LABS: GFR ESTIMATE (CALCULATED) > 59 mL/min/
[2016-11-04 17:49] LABS: UREA NITROGEN (BUN) 11 mg/dL (9-23)
[2016-11-04 17:55] LABS: TROP-I INTERPRETATION NEGATIVE; TROPONIN-I 0.03 ng/mL (0.0-0.30)
[2016-11-04 17:56] LABS: QUANTITATIVE HCG < 4.0 MIU/ML
[2016-11-04 19:33] LABS: ADD MEDTOX COMMENT Y; AMPHETAMINE NEGATIVE (500 ng/mL); BARBITURATES NEGATIVE (200 ng/mL); BENZODIAZEPINES PRESUMPTIVE POSITIVE (150 ng/mL); COCAINE NEGATIVE (150 ng/mL); INTERNAL CONTROLS VALID? YES; METHADONE NEGATIVE (200 ng/mL); METHAMPHETAMINE NEGATIVE (500 ng/mL); OPIATES (MORPHINE) PRESUMPTIVE POSITIVE (100 ng/mL); OXYCODONE PRESUMPTIVE POSITIVE (100 ng/mL); PHENCYCLIDINE NEGATIVE (25 ng/mL); PROPOXYPHENE NEGATIVE (300 ng/mL); THC CANNABINOIDS PRESUMPTIVE POSITIVE (50 ng/mL); TRICYCLIC ANTIDEPRESSANTS NEGATIVE (300 ng/mL)
[2016-11-04] MEDS ORDERED: VENTOLIN HFA18 GM IH (19:39)
[2016-11-04] MEDS ORDERED: GABAPENTIN100 MG PO (19:39)
[2016-11-04] MEDS ORDERED: FOLIC ACID1 MG PO (19:39)
[2016-11-04 19:54] LABS: BENZODIAZEPINES, URINE SCREEN POSITIVE (200 ng/mL)
[2016-11-04 22:30] VITALS: BP 123/81
[2016-11-05] VITALS (17 sets, daily range): BP systolic 93–132; BP diastolic 73–98
[2016-11-05 05:36] LABS: BASOPHIL COUNT 0.1 K/uL (0-0.1); EOSINOPHIL (%) 2.6 % (0-5); EOSINOPHIL COUNT 0.1 K/uL (0-0.3); IMMATURE GRANULOCYTE (%) 0.6 % (0.0-0.7); INSTRUMENT ABS NEUTROPHIL CT 2.3 K/uL; LYMPHOCYTE COUNT 2.3 K/uL (1.0-2.8); MCH 30.1 PG (29.0-34.0); MCHC 34.1 G/DL (30.0-36.0); MCV 88.2 FL (83-99); MEAN PLAT.VOLUME 12.2 uM^3 (9.5-12.4); MONOCYTE (%) 10.7 % (3-12); MONOCYTE COUNT 0.6 K/uL (0-0.8); NEUTROPHIL (%) 42.5 % (45-76); NEUTROPHIL COUNT 2.3 K/uL (1.8-6.4); PLATELET COUNT 107 K/uL (156-360); RBC DIS.WIDTH-CV 17.8 % (11.8-14.6); RBC DIS.WIDTH-SD 55.9 % (39-53); RED BLOOD COUNT 4.42 M/uL (3.80-5.20); WHITE BLOOD COUNT 5.4 K/uL (4.1-10.2)
[2016-11-05 06:00] LABS: ANION GAP 11 MEQ/L (2-14); CHLORIDE 103 MEQ/L (99-109); GFR ESTIMATE (CALCULATED) > 59 mL/min/; GLUCOSE 91 mg/dL (70-99); POTASSIUM 3.5 MEQ/L (3.7-5.4); SAMPLE HEMOLYSIS CHECK 0; SAMPLE ICTERIC CHECK 0; SAMPLE LIPEMIA CHECK 0; SODIUM 141 MEQ/L (136-147); UREA NITROGEN (BUN) 10 mg/dL (9-23)
[2016-11-06] VITALS (21 sets, daily range): BP systolic 0–142; BP diastolic 0–98
[2016-11-06 06:44] LABS: ANION GAP 11 MEQ/L (2-14); CHLORIDE 101 MEQ/L (99-109); GFR ESTIMATE (CALCULATED) > 59 mL/min/; GLUCOSE 93 mg/dL (70-99); POTASSIUM 3.4 MEQ/L (3.7-5.4); SAMPLE HEMOLYSIS CHECK 0; SAMPLE ICTERIC CHECK 0; SAMPLE LIPEMIA CHECK 0; SODIUM 140 MEQ/L (136-147); UREA NITROGEN (BUN) 10 mg/dL (9-23)
[2016-11-06 06:51] LABS: MAGNESIUM 1.2 mg/dl (1.3-2.7)
[2016-11-06 11:45] LABS: METH RESISTANT S AUREUS PCR NEGATIVE (NEGATIVE); PROBE CHECK PASS; SPECIMEN PROCESSING CONTROL PASS
[2016-11-07] VITALS (17 sets, daily range): BP systolic 118–142; BP diastolic 92–115
[2016-11-07 11:46] LABS: ANION GAP 13 MEQ/L (2-14); CHLORIDE 109 MEQ/L (99-109); GFR ESTIMATE (CALCULATED) > 59 mL/min/; SAMPLE HEMOLYSIS CHECK 0; SAMPLE ICTERIC CHECK 0; SAMPLE LIPEMIA CHECK 0; SODIUM 147 MEQ/L (136-147); UREA NITROGEN (BUN) 9 mg/dL (9-23)
[2016-11-07 11:53] LABS: GLUCOSE 118 mg/dL (70-99); MAGNESIUM 2.2 mg/dl (1.3-2.7); POTASSIUM 4.8 MEQ/L (3.7-5.4)
[2016-11-08] VITALS (19 sets, daily range): BP systolic 111–167; BP diastolic 74–129
[2016-11-08 06:31] LABS: ANION GAP 15 MEQ/L (2-14); CHLORIDE 105 MEQ/L (99-109); GFR ESTIMATE (CALCULATED) > 59 mL/min/; GLUCOSE 118 mg/dL (70-99); MAGNESIUM 1.7 mg/dl (1.3-2.7); SAMPLE HEMOLYSIS CHECK 0; SAMPLE ICTERIC CHECK 0; SAMPLE LIPEMIA CHECK 0; SODIUM 146 MEQ/L (136-147); UREA NITROGEN (BUN) 11 mg/dL (9-23)
[2016-11-08 06:33] LABS: POTASSIUM 3.6 MEQ/L (3.7-5.4)
[2016-11-08 06:48] LABS: BASOPHIL COUNT 0.1 K/uL (0-0.1); EOSINOPHIL (%) 0.3 % (0-5); HEMATOCRIT 44.5 % (36.0-46.0); IMMATURE GRANULOCYTE (%) 0.6 % (0.0-0.7); INSTRUMENT ABS NEUTROPHIL CT 5.2 K/uL; LYMPHOCYTE COUNT 1.1 K/uL (1.0-2.8); MCH 29.2 PG (29.0-34.0); MCHC 32.8 G/DL (30.0-36.0); MEAN PLAT.VOLUME 11.6 uM^3 (9.5-12.4); MONOCYTE (%) 9.5 % (3-12); MONOCYTE COUNT 0.7 K/uL (0-0.8); NEUTROPHIL (%) 73.6 % (45-76); NEUTROPHIL COUNT 5.2 K/uL (1.8-6.4); RBC DIS.WIDTH-CV 18.2 % (11.8-14.6); WHITE BLOOD COUNT 7.1 K/uL (4.1-10.2)
[2016-11-08 06:50] LABS: PLATELET COUNT 150 K/uL (156-360)
[2016-11-09 01:04] VITALS: BP 110/79
[2016-11-09 05:00] VITALS: BP 111/78
[2016-11-09 07:07] LABS: BASOPHIL COUNT 0.1 K/uL (0-0.1); EOSINOPHIL (%) 2.1 % (0-5); EOSINOPHIL COUNT 0.1 K/uL (0-0.3); HEMATOCRIT 39.2 % (36.0-46.0); IMMATURE GRANULOCYTE (%) 0.3 % (0.0-0.7); INSTRUMENT ABS NEUTROPHIL CT 3.5 K/uL; LYMPHOCYTE COUNT 1.3 K/uL (1.0-2.8); MCH 29.9 PG (29.0-34.0); MCHC 33.7 G/DL (30.0-36.0); MCV 88.7 FL (83-99); MEAN PLAT.VOLUME 11.1 uM^3 (9.5-12.4); MONOCYTE (%) 13.3 % (3-12); MONOCYTE COUNT 0.8 K/uL (0-0.8); NEUTROPHIL (%) 60.4 % (45-76); NEUTROPHIL COUNT 3.5 K/uL (1.8-6.4); PLATELET COUNT 154 K/uL (156-360); RBC DIS.WIDTH-SD 58.2 % (39-53); RED BLOOD COUNT 4.42 M/uL (3.80-5.20); WHITE BLOOD COUNT 5.7 K/uL (4.1-10.2)
[2016-11-09 07:18] VITALS: BP 114/79
[2016-11-09 07:37] LABS: ALKALINE PHOSPHATASE 50 IU/L (3-129); ANION GAP 9 MEQ/L (2-14); CHLORIDE 103 MEQ/L (99-109); GFR ESTIMATE (CALCULATED) > 59 mL/min/; GLUCOSE 99 mg/dL (70-99); POTASSIUM 3.6 MEQ/L (3.7-5.4); SAMPLE HEMOLYSIS CHECK 0; SAMPLE ICTERIC CHECK 0; SAMPLE LIPEMIA CHECK 0; SODIUM 141 MEQ/L (136-147); TOTAL BILIRUBIN 1.2 MG/DL (0.0-1.0); UREA NITROGEN (BUN) 12 mg/dL (9-23)
[2016-11-09 11:03] VITALS: BP 123/53
[2016-11-09 15:17] VITALS: BP 123/87
[2016-11-09 19:48] VITALS: BP 116/79
[2016-11-10] VITALS (7 sets, daily range): BP systolic 105–142; BP diastolic 72–85
[2016-11-10 11:38] LABS: ANION GAP 10 MEQ/L (2-14); CHLORIDE 105 MEQ/L (99-109); GFR ESTIMATE (CALCULATED) > 59 mL/min/; GLUCOSE 100 mg/dL (70-99); SAMPLE HEMOLYSIS CHECK 0; SAMPLE ICTERIC CHECK 0; SAMPLE LIPEMIA CHECK 0; SODIUM 140 MEQ/L (136-147); UREA NITROGEN (BUN) 13 mg/dL (9-23)
[2016-11-10 11:40] LABS: POTASSIUM 4.5 MEQ/L (3.7-5.4)
[2016-11-11 04:30] VITALS: BP 139/75
[2016-11-11 06:58] LABS: ANION GAP 10 MEQ/L (2-14); CHLORIDE 105 MEQ/L (99-109); GFR ESTIMATE (CALCULATED) > 59 mL/min/; GLUCOSE 96 mg/dL (70-99); POTASSIUM 3.9 MEQ/L (3.7-5.4); SAMPLE HEMOLYSIS CHECK 0; SAMPLE ICTERIC CHECK 0; SAMPLE LIPEMIA CHECK 0; SODIUM 141 MEQ/L (136-147); UREA NITROGEN (BUN) 13 mg/dL (9-23)
[2016-11-11 08:00] VITALS: BP 111/73
[2016-11-11 12:20] VITALS: BP 105/72
[2016-11-11 16:33] VITALS: BP 102/63
[2016-11-11 19:05] VITALS: BP 101/73
[2016-11-11 23:40] VITALS: BP 125/73
[2016-11-12 03:18] VITALS: BP 108/75
[2016-11-12 06:14] LABS: ANION GAP 9 MEQ/L (2-14); CHLORIDE 107 MEQ/L (99-109); GFR ESTIMATE (CALCULATED) > 59 mL/min/; GLUCOSE 122 mg/dL (70-99); POTASSIUM 3.9 MEQ/L (3.7-5.4); SAMPLE HEMOLYSIS CHECK 0; SAMPLE ICTERIC CHECK 0; SAMPLE LIPEMIA CHECK 0; SODIUM 141 MEQ/L (136-147); UREA NITROGEN (BUN) 11 mg/dL (9-23)
[2016-11-12 09:07] VITALS: BP 111/80
[2016-11-12 12:00] VITALS: BP 105/81
[2016-11-12 14:59] VITALS: BP 134/63
[2016-11-12 15:09] VITALS: BP 110/85
[2016-11-12 21:30] VITALS: BP 135/98
[2016-11-13 00:12] VITALS: BP 131/95
[2016-11-13 04:34] VITALS: BP 116/80
[2016-11-13 08:00] VITALS: BP 122/89
[2016-11-13 12:54] VITALS: BP 131/91
[2016-11-13 14:55] VITALS: BP 118/79
[2016-11-13 20:50] VITALS: BP 132/94
[2016-11-14 00:10] VITALS: BP 121/83
[2016-11-14 04:14] VITALS: BP 133/85
[2016-11-14 08:00] VITALS: BP 155/90
[2016-11-14 12:00] VITALS: BP 124/85
[2016-11-14 16:45] VITALS: BP 129/79
[2016-11-14 19:38] VITALS: BP 123/86
[2016-11-15 00:28] VITALS: BP 114/72
[2016-11-15 04:09] VITALS: BP 114/81
[2016-11-15 05:47] LABS: ANION GAP 10 MEQ/L (2-14); CHLORIDE 103 MEQ/L (99-109); GFR ESTIMATE (CALCULATED) > 59 mL/min/; GLUCOSE 114 mg/dL (70-99); SAMPLE HEMOLYSIS CHECK 1; SAMPLE ICTERIC CHECK 0; SAMPLE LIPEMIA CHECK 0; SODIUM 138 MEQ/L (136-147); UREA NITROGEN (BUN) 10 mg/dL (9-23)
[2016-11-15 05:50] LABS: POTASSIUM 4.9 MEQ/L (3.7-5.4)
[2016-11-15 08:05] VITALS: BP 132/89
[2016-11-15 11:15] VITALS: BP 125/89
[2016-11-15 15:50] VITALS: BP 130/86
[2016-11-16 00:30] VITALS: BP 130/90
[2016-11-16 03:25] VITALS: BP 125/80
[2016-11-16 07:45] VITALS: BP 133/88
[2016-11-16 11:55] VITALS: BP 131/81
[2016-11-16 15:55] VITALS: BP 116/75
[2016-11-16 20:50] VITALS: BP 125/80
[2016-11-17 00:28] VITALS: BP 132/86
[2016-11-17 05:33] VITALS: BP 128/98
[2016-11-17 07:41] LABS: ANION GAP 13 MEQ/L (2-14); CHLORIDE 102 MEQ/L (99-109); GFR ESTIMATE (CALCULATED) > 59 mL/min/; GLUCOSE 86 mg/dL (70-99); POTASSIUM 4.1 MEQ/L (3.7-5.4); SAMPLE HEMOLYSIS CHECK 0; SAMPLE ICTERIC CHECK 0; SAMPLE LIPEMIA CHECK 0; SODIUM 140 MEQ/L (136-147); UREA NITROGEN (BUN) 13 mg/dL (9-23)
[2016-11-17 08:56] VITALS: BP 127/71
[2016-11-17 11:41] VITALS: BP 127/86
[2016-11-17] MEDS ORDERED: DUONEB 2.5-0.5 M3 ML AEROSOL (15:25)
[2016-11-17] MEDS ORDERED: DIGOXIN250 MCG PO (15:26)
[2016-11-17] MEDS ORDERED: CARDIZEM90 MG PO (15:26)
[2016-11-17] MEDS ORDERED: B-1100 MG PO (15:27)
[2016-11-17] MEDS ORDERED: FOLIC ACID1 MG PO (15:31)
[2016-11-17] MEDS ORDERED: SEROQUEL12.5 MG PO (15:32)
== END 2016-11-17 20:21 | DRG 896 ==
LOC: EME 15:39 → ENRESERV 21:29 → 4EAST 21:37 → EDOF 21:37 → ENRESERV 21:46 → 4EAST 22:28 → ENRESERV 11-06 07:20 → 4WEST 11-06 07:20 → ENRESERV 11-08 11:15 → 4EAST 11-08 14:39
PROVIDERS: Emergency Medicine; Family Medicine; Internal Medicine; Internal Medicine Critical Care Medicine; Specialist
DX: F10.231 Alcohol dependence with withdrawal delirium (principal); J44.9 Chronic obstructive pulmonary disease, unspecified; E87.6 Hypokalemia; D69.6 Thrombocytopenia, unspecified; J69.0 Pneumonitis due to inhalation of food and vomit; F12.90 Cannabis use, unspecified, uncomplicated; F29 Unspecified psychosis not due to a substance or known physiological condition; G93.41 Metabolic encephalopathy; G40.909 Epilepsy, unspecified, not intractable, without status epilepticus; F60.9 Personality disorder, unspecified; I71.2 Thoracic aortic aneurysm, without rupture; I48.1 Persistent atrial fibrillation; E83.42 Hypomagnesemia; K70.10 Alcoholic hepatitis without ascites; K76.0 Fatty (change of) liver, not elsewhere classified; I10 Essential (primary) hypertension; I35.1 Nonrheumatic aortic (valve) insufficiency; F43.23 Adjustment disorder with mixed anxiety and depressed mood; E78.5 Hyperlipidemia, unspecified; G47.10 Hypersomnia, unspecified; F17.200 Nicotine dependence, unspecified, uncomplicated; Z86.73 Personal history of transient ischemic attack (TIA), and cerebral infarction without residual deficits; Z86.718 Personal history of other venous thrombosis and embolism; Z86.711 Personal history of pulmonary embolism; Z91.19 Patient's noncompliance with other medical treatment and regimen; Z91.14 Patient's other noncompliance with medication regimen
CPT/HCPCS: 70450; 71010; 71030; 76705; 80048; 80053; 83735; 83880; 84100; 84484; 84702; 84999; 85025; 85027; 87086; 87641; 92523 GN; 92610 GN; 93005; 93971; 94640 76; 94760; 94799; 95819; 99202; 99281; 99285; G0480; J0295; J0696; J1160; J1630; J1650; J1940; J2060; J3411; J3475; J3486; J7050; J7120

== ENCOUNTER → 2017-02-10 | Emergency (ER) | payer OTHER ==
[~2017-02-10] VITALS: Ht 175.3 cm; Wt 69.6 kg
[~2017-02-10] MED LIST changes: +CARDIZEM90 MG PO; +DUONEB 2.5-0.5 M3 ML AEROSOL; +GABAPENTIN100 MG PO; +MUCINEX DM ER1 EACH PO; +PROAIR RESPICL90 MCG IH
[2017-02-10 06:33] LABS: HEMATOCRIT 42.4 % (36.0-46.0); MCH 31.2 PG (29.0-34.0); MCHC 34.2 G/DL (30.0-36.0); MCV 91.2 FL (83-99); PLATELET COUNT 299 K/uL (156-360); RBC DIS.WIDTH-CV 15.1 % (11.8-14.6); RBC DIS.WIDTH-SD 50.4 % (39-53); RED BLOOD COUNT 4.65 M/uL (3.80-5.20); WHITE BLOOD COUNT 7.5 K/uL (4.1-10.2)
[2017-02-10 06:43] LABS: CHLORIDE 105 mEq/L (99-109); POTASSIUM 3.7 mEq/L (3.7-5.4); SODIUM 138 mEq/L (136-147)
[2017-02-10 06:45] LABS: GLUCOSE 94 mg/dL (70-99)
[2017-02-10 06:46] LABS: ANION GAP 14 MEQ/L (2-14)
[2017-02-10 06:49] LABS: GFR ESTIMATE (CALCULATED) > 59 mL/min/
[2017-02-10 06:50] LABS: UREA NITROGEN (BUN) 4 mg/dL (9-23)
[2017-02-10 06:53] LABS: TROP-I INTERPRETATION NEGATIVE; TROPONIN-I 0.01 ng/mL (0.0-0.30)
[2017-02-10 10:26] VITALS: BP 114/80
== END | disposition home or self-care (01) ==
LOC: EME 06:07
DX: R09.1 Pleurisy (principal); J44.0 Chronic obstructive pulmonary disease with (acute) lower respiratory infection; J40 Bronchitis, not specified as acute or chronic; M79.662 Pain in left lower leg; M25.562 Pain in left knee; E78.5 Hyperlipidemia, unspecified; I10 Essential (primary) hypertension; F17.200 Nicotine dependence, unspecified, uncomplicated; Z86.73 Personal history of transient ischemic attack (TIA), and cerebral infarction without residual deficits; I71.2 Thoracic aortic aneurysm, without rupture; F41.9 Anxiety disorder, unspecified; F32.9 Major depressive disorder, single episode, unspecified; Z86.718 Personal history of other venous thrombosis and embolism
CPT/HCPCS: 71020; 71275; 80048; 84484; 85027; 93005; 93970; 99281; 99285; J1885

== ENCOUNTER 2017-03-27 10:21 | Emergency (ER) | payer OTHER ==
[~2017-03-27] VITALS: Ht 175.3 cm; Wt 69.7 kg
[2017-03-27 10:59] LABS: BASOPHIL (%) 1.3 % (0-1); BASOPHIL COUNT 0.1 K/uL (0-0.1); EOSINOPHIL (%) 1.4 % (0-5); EOSINOPHIL COUNT 0.1 K/uL (0-0.3); HEMATOCRIT 38.9 % (36.0-46.0); HEMOGLOBIN 13.7 G/DL (11.9-15.5); IMMATURE GRANULOCYTE (%) 0.4 % (0.0-0.7); LYMPHOCYTE (%) 37.2 % (15-42); LYMPHOCYTE COUNT 2.6 K/uL (1.0-2.8); MCH 31.4 PG (29.0-34.0); MCHC 35.2 G/DL (30.0-36.0); MCV 89.2 FL (83-99); MONOCYTE (%) 9.6 % (3-12); MONOCYTE COUNT 0.7 K/uL (0-0.8); NEUTROPHIL (%) 50.1 % (45-76); NEUTROPHIL COUNT 3.5 K/uL (1.8-6.4); PLATELET COUNT 183 K/uL (156-360); RBC DIS.WIDTH-CV 12.7 % (11.8-14.6); RBC DIS.WIDTH-SD 41.9 % (39-53); RED BLOOD COUNT 4.36 M/uL (3.80-5.20); WHITE BLOOD COUNT 7.1 K/uL (4.1-10.2)
[2017-03-27 11:07] LABS: CHLORIDE 99 mEq/L (99-109); POTASSIUM 3.6 mEq/L (3.7-5.4); SODIUM 129 mEq/L (136-147)
[2017-03-27 11:09] LABS: GLUCOSE 103 mg/dL (70-99)
[2017-03-27 11:13] LABS: CREATININE 0.7 mg/dL (0.6-1.3); GFR ESTIMATE (CALCULATED) > 59 mL/min/
[2017-03-27 11:14] LABS: UREA NITROGEN (BUN) 13 mg/dL (9-23)
[2017-03-27 12:08] VITALS: BP 113/72
== END 2017-03-27 12:10 | disposition left against medical advice (07) ==
LOC: EME 10:21
PROVIDERS: Emergency Medicine
DX: R42 Dizziness and giddiness (principal); R55 Syncope and collapse; E86.0 Dehydration; S00.03XA Contusion of scalp, initial encounter; W19.XXXA Unspecified fall, initial encounter; I71.4 Abdominal aortic aneurysm, without rupture; I10 Essential (primary) hypertension; Z86.711 Personal history of pulmonary embolism; Z86.718 Personal history of other venous thrombosis and embolism; Z86.73 Personal history of transient ischemic attack (TIA), and cerebral infarction without residual deficits; F17.200 Nicotine dependence, unspecified, uncomplicated; Z53.20 Procedure and treatment not carried out because of patient's decision for unspecified reasons
CPT/HCPCS: 70450; 80048; 85025; 93005; 99281; 99284; J7030

== ENCOUNTER 2017-05-02 16:54 | Emergency (ER) | payer OTHER ==
[~2017-05-02] VITALS: Ht 175.3 cm; Wt 68.0 kg
[2017-05-02 17:26] LABS: BASOPHIL (%) 0.4 % (0-1); BASOPHIL COUNT 0.1 K/uL (0-0.1); EOSINOPHIL (%) 0.1 % (0-5); HEMATOCRIT 42.7 % (36.0-46.0); HEMOGLOBIN 15.3 G/DL (11.9-15.5); IMMATURE GRANULOCYTE (%) 0.7 % (0.0-0.7); LYMPHOCYTE (%) 9.8 % (15-42); LYMPHOCYTE COUNT 1.8 K/uL (1.0-2.8); MCHC 35.8 G/DL (30.0-36.0); MCV 86.6 FL (83-99); MONOCYTE (%) 6.3 % (3-12); MONOCYTE COUNT 1.2 K/uL (0-0.8); NEUTROPHIL (%) 82.7 % (45-76); NEUTROPHIL COUNT 15.3 K/uL (1.8-6.4); PLATELET COUNT 149 K/uL (156-360); RBC DIS.WIDTH-CV 13.8 % (11.8-14.6); RBC DIS.WIDTH-SD 44.2 % (39-53); RED BLOOD COUNT 4.93 M/uL (3.80-5.20); WHITE BLOOD COUNT 18.5 K/uL (4.1-10.2)
[2017-05-02 17:31] LABS: INTER. NORMALIZED RATIO 1.2
[2017-05-02 17:34] LABS: PTT 23.3 SEC (25-37)
[2017-05-02 17:38] LABS: ALBUMIN 3.8 g/dL (3.2-4.8); CHLORIDE 94 mEq/L (99-109); POTASSIUM 3.1 mEq/L (3.7-5.4); SODIUM 132 mEq/L (136-147)
[2017-05-02 17:39] LABS: MAGNESIUM 1.5 mg/dL (1.3-2.7)
[2017-05-02 17:40] LABS: GLUCOSE 109 mg/dL (70-99); TOTAL PROTEIN 7.5 g/dL (6.4-8.3)
[2017-05-02 17:42] LABS: TOTAL BILIRUBIN 0.7 mg/dL (0.0-1.0)
[2017-05-02 17:43] LABS: SERUM ETHYL ALCOHOL 218 mg/dL
[2017-05-02 17:44] LABS: ALKALINE PHOSPHATASE 89 IU/L (3-129); CREATININE 0.7 mg/dL (0.6-1.3); GFR ESTIMATE (CALCULATED) > 59 mL/min/
[2017-05-02 17:45] LABS: UREA NITROGEN (BUN) 3 mg/dL (9-23)
[2017-05-02 17:46] LABS: AST (GOT) 27 IU/L (2-34)
[2017-05-02 17:47] LABS: ALT (GPT) 21 IU/L (3-49)
[2017-05-02 17:50] LABS: TROP-I INTERPRETATION NEGATIVE; TROPONIN-I 0.02 ng/mL (0.0-0.30)
[2017-05-02 17:55] LABS: DIGOXIN < 0.3 ng/mL (0.8-2.0)
[2017-05-02] MEDS ORDERED: THIAMINE HCL100 MG PO (19:38)
[2017-05-02] MEDS ORDERED: DIGOXIN250 MCG PO (19:38)
[2017-05-02 20:00] VITALS: BP 103/74
== END 2017-05-02 20:00 | disposition home or self-care (01) ==
LOC: EME 16:54
PROVIDERS: Emergency Medicine
DX: I48.91 Unspecified atrial fibrillation (principal); F10.10 Alcohol abuse, uncomplicated; E87.6 Hypokalemia; J41.0 Simple chronic bronchitis; R06.02 Shortness of breath; R11.2 Nausea with vomiting, unspecified; Z86.718 Personal history of other venous thrombosis and embolism; Z86.711 Personal history of pulmonary embolism; Z86.73 Personal history of transient ischemic attack (TIA), and cerebral infarction without residual deficits; F17.200 Nicotine dependence, unspecified, uncomplicated; Y90.7 Blood alcohol level of 200-239 mg/100 ml
CPT/HCPCS: 71045; 80053; 80162; 83735; 84484; 85025; 85610; 85730; 87502; 93005; 99281; 99285; G0480; J2405

== ENCOUNTER 2017-06-27 10:52 | Emergency (ER) | payer OTHER ==
[~2017-06-27] VITALS: Ht 175.3 cm; Wt 68.1 kg
[2017-06-27 11:36] LABS: COMMENTS - BLOOD GASES A+C+; SITE LR; TOTAL RESP RATE 16 resp/min
[2017-06-27 11:37] LABS: BASE EXCESS -4.3 mEq/L (-3 to +3); BICARBONATE 20.2 mEq/L (22-26); CARBOXY HGB 5.8 % (0-5); PCO2 35 mm Hg (35-45); PO2 73 mm Hg (80-100); pH 7.37 (7.35-7.45)
[2017-06-27 11:48] LABS: HEMATOCRIT 45.9 % (36.0-46.0); HEMOGLOBIN 16.1 G/DL (11.9-15.5); MCH 31.1 PG (29.0-34.0); MCHC 35.1 G/DL (30.0-36.0); MCV 88.6 FL (83-99); PLATELET COUNT 125 K/uL (156-360); RBC DIS.WIDTH-CV 13.7 % (11.8-14.6); RBC DIS.WIDTH-SD 44.7 % (39-53); RED BLOOD COUNT 5.18 M/uL (3.80-5.20); WHITE BLOOD COUNT 10.3 K/uL (4.1-10.2)
[2017-06-27 11:56] LABS: INTER. NORMALIZED RATIO 1.1
[2017-06-27 11:59] LABS: PTT 26.2 SEC (25-37)
[2017-06-27 12:10] LABS: ALBUMIN 3.9 g/dL (3.2-4.8); CHLORIDE 98 mEq/L (99-109); SODIUM 133 mEq/L (136-147)
[2017-06-27 12:11] LABS: MAGNESIUM 1.8 mg/dL (1.3-2.7)
[2017-06-27 12:12] LABS: GLUCOSE 103 mg/dL (70-99); TOTAL PROTEIN 7.3 g/dL (6.4-8.3)
[2017-06-27 12:14] LABS: TOTAL BILIRUBIN 0.2 mg/dL (0.0-1.0)
[2017-06-27 12:15] LABS: SERUM ETHYL ALCOHOL 355 mg/dL
[2017-06-27 12:16] LABS: ALKALINE PHOSPHATASE 83 IU/L (3-129); CREATININE 0.6 mg/dL (0.6-1.3); GFR ESTIMATE (CALCULATED) > 59 mL/min/; TROP-I INTERPRETATION NEGATIVE; TROPONIN-I < 0.01 ng/mL (0.0-0.30)
[2017-06-27 12:17] LABS: UREA NITROGEN (BUN) 3 mg/dL (9-23)
[2017-06-27 12:18] LABS: AST (GOT) 43 IU/L (2-34)
[2017-06-27 12:19] LABS: ALT (GPT) 23 IU/L (3-49); LIPASE 20 U/L (1.0-51.0)
[2017-06-27 15:05] LABS: APPEARANCE CLEAR ((CLEAR)); BILIRUBIN NEGATIVE; BLOOD SMALL; COLOR YELLOW ((YELLOW)); GLUCOSE (STRIP) NEGATIVE; KETONES NEGATIVE; LEUKOCYTES NEGATIVE; NITRITE NEGATIVE; PROTEIN (STRIP) NEGATIVE; SPECIFIC GRAVITY 1.045 (1.000-1.030); UROBILINOGEN 0.2 MG/DL (0.2-1.0)
[2017-06-27 15:10] LABS: BACTERIA NONE SEEN /HPF; EPITHELIAL CELLS 1+ /HPF; MUCUS TRACE /LPF; RED BLOOD CELLS 0-5 /HPF (0-5); WHITE BLOOD CELLS 0-5 /HPF (0-5)
[2017-06-27] MEDS ORDERED: PROVENTIL HFA6.7 GM IH (15:26)
[2017-06-27] MEDS ORDERED: LEVAQUIN750 MG PO (15:26)
[2017-06-27 15:34] LABS: AMPHETAMINE NEGATIVE (500 ng/mL); BARBITURATES NEGATIVE (200 ng/mL); BENZODIAZEPINES PRESUMPTIVE POSITIVE (150 ng/mL); BUPRENORPHINE NEGATIVE (10 ng/mL); COCAINE NEGATIVE (150 ng/mL); METHADONE NEGATIVE (200 ng/mL); METHAMPHETAMINE NEGATIVE (500 ng/mL); OPIATES (MORPHINE) NEGATIVE (100 ng/mL); OXYCODONE PRESUMPTIVE POSITIVE (100 ng/mL); PHENCYCLIDINE NEGATIVE (25 ng/mL); PROPOXYPHENE NEGATIVE (300 ng/mL); THC CANNABINOIDS NEGATIVE (50 ng/mL); TRICYCLIC ANTIDEPRESSANTS NEGATIVE (300 ng/mL)
[2017-06-27 15:37] VITALS: BP 118/87
[2017-06-27 16:24] LABS: BENZODIAZEPINES, URINE SCREEN POSITIVE (200 ng/mL)
== END 2017-06-27 15:41 | disposition left against medical advice (07) ==
LOC: EME 10:52
PROVIDERS: Emergency Medicine
DX: J18.9 Pneumonia, unspecified organism (principal); A41.9 Sepsis, unspecified organism; J44.0 Chronic obstructive pulmonary disease with (acute) lower respiratory infection; I48.91 Unspecified atrial fibrillation; F10.229 Alcohol dependence with intoxication, unspecified; Y90.8 Blood alcohol level of 240 mg/100 ml or more; F17.200 Nicotine dependence, unspecified, uncomplicated; T45.516A Underdosing of anticoagulants, initial encounter; Z91.128 Patient's intentional underdosing of medication regimen for other reason; Z86.718 Personal history of other venous thrombosis and embolism; Z86.711 Personal history of pulmonary embolism; B19.20 Unspecified viral hepatitis C without hepatic coma; E78.5 Hyperlipidemia, unspecified; I10 Essential (primary) hypertension; F41.9 Anxiety disorder, unspecified; F32.9 Major depressive disorder, single episode, unspecified; Z86.73 Personal history of transient ischemic attack (TIA), and cerebral infarction without residual deficits
CPT/HCPCS: 36600; 71045; 71275; 80053; 81003; 82140; 82803; 83605; 83690; 83735; 84484; 84999; 85027; 85610; 85730; 87040; 87077; 87086; 87801; 93005; 99281; 99285; G0480; J7030

== ENCOUNTER 2017-06-29 19:19 | Inpatient (IN) | payer OTHER ==
[~2017-06-29] VITALS: Ht 175.3 cm; Wt 63.8 kg
[~2017-06-29 19:19] MED LIST changes: +PROVENTIL HFA6.7 GM IH
[2017-06-29 19:58] LABS: BASOPHIL (%) 0.4 % (0-1); EOSINOPHIL (%) 0.4 % (0-5); HEMATOCRIT 41.3 % (36.0-46.0); HEMOGLOBIN 14.8 G/DL (11.9-15.5); IMMATURE GRANULOCYTE (%) 0.8 % (0.0-0.7); LYMPHOCYTE (%) 25.8 % (15-42); MCH 30.8 PG (29.0-34.0); MCHC 35.8 G/DL (30.0-36.0); MONOCYTE (%) 7.1 % (3-12); MONOCYTE COUNT 0.6 K/uL (0-0.8); NEUTROPHIL (%) 65.5 % (45-76); NEUTROPHIL COUNT 5.2 K/uL (1.8-6.4); PLATELET COUNT 88 K/uL (156-360); RBC DIS.WIDTH-CV 13.2 % (11.8-14.6); RBC DIS.WIDTH-SD 41.6 % (39-53); WHITE BLOOD COUNT 7.9 K/uL (4.1-10.2)
[2017-06-29 20:14] LABS: INTER. NORMALIZED RATIO 1.4
[2017-06-29 20:17] LABS: ALBUMIN 3.6 g/dL (3.2-4.8); CHLORIDE 95 mEq/L (99-109); POTASSIUM 3.4 mEq/L (3.7-5.4); PTT 28.5 SEC (25-37); SODIUM 128 mEq/L (136-147)
[2017-06-29 20:20] LABS: GLUCOSE 101 mg/dL (70-99); TOTAL PROTEIN 6.7 g/dL (6.4-8.3)
[2017-06-29 20:22] LABS: SERUM ETHYL ALCOHOL 258 mg/dL
[2017-06-29 20:23] LABS: ALKALINE PHOSPHATASE 75 IU/L (3-129); CREATININE 0.8 mg/dL (0.6-1.3); GFR ESTIMATE (CALCULATED) > 59 mL/min/
[2017-06-29 20:24] LABS: TOTAL BILIRUBIN 0.7 mg/dL (0.0-1.0); UREA NITROGEN (BUN) 8 mg/dL (9-23)
[2017-06-29 20:25] LABS: AST (GOT) 26 IU/L (2-34)
[2017-06-29 20:26] LABS: ALT (GPT) 16 IU/L (3-49)
[2017-06-29 20:27] LABS: LIPASE 20 U/L (1.0-51.0)
[2017-06-29 20:32] LABS: DIGOXIN < 0.3 ng/mL (0.8-2.0)
[2017-06-29 23:28] LABS: APPEARANCE SL.HAZY ((CLEAR)); BILIRUBIN NEGATIVE; BLOOD SMALL; COLOR YELLOW ((YELLOW)); GLUCOSE (STRIP) NEGATIVE; KETONES NEGATIVE; LEUKOCYTES SMALL; NITRITE NEGATIVE; PROTEIN (STRIP) 30; SPECIFIC GRAVITY 1.006 (1.000-1.030); UROBILINOGEN 0.2 MG/DL (0.2-1.0)
[2017-06-29 23:33] LABS: BACTERIA RARE /HPF; EPITHELIAL CELLS RARE /HPF; HYALINE CASTS 0-5 /LPF; MUCUS TRACE /LPF; RED BLOOD CELLS 0-5 /HPF (0-5); UCUL ADDED? YES
[2017-06-30 00:38] LABS: MAGNESIUM 1.5 mg/dL (1.3-2.7)
[2017-06-30 01:28] VITALS: BP 99/77
[2017-06-30 02:45] VITALS: BP 116/76
[2017-06-30 05:24] VITALS: BP 123/83
[2017-06-30 06:55] VITALS: BP 119/82
[2017-06-30 09:04] LABS: HEMATOCRIT 40.3 % (36.0-46.0); HEMOGLOBIN 14.3 G/DL (11.9-15.5); MCHC 35.5 G/DL (30.0-36.0); MCV 87.2 FL (83-99); PLATELET COUNT 92 K/uL (156-360); RBC DIS.WIDTH-CV 13.3 % (11.8-14.6); RBC DIS.WIDTH-SD 42.9 % (39-53); RED BLOOD COUNT 4.62 M/uL (3.80-5.20); WHITE BLOOD COUNT 7.2 K/uL (4.1-10.2)
[2017-06-30 09:19] LABS: CHLORIDE 102 MEQ/L (99-109); CREATININE 0.7 MG/DL (0.6-1.3); GFR ESTIMATE (CALCULATED) > 59 mL/min/; GLUCOSE 94 mg/dL (70-99); POTASSIUM 3.7 MEQ/L (3.7-5.4); SODIUM 132 MEQ/L (136-147); UREA NITROGEN (BUN) 8 mg/dL (9-23)
[2017-06-30 10:53] LABS: MAGNESIUM 1.9 mg/dl (1.3-2.7)
[2017-06-30 11:10] VITALS: BP 137/80
== END 2017-06-30 13:33 | disposition left against medical advice (07) | DRG 194 ==
LOC: EME → EDBD 19:19 → EME 19:19 → EDOF 06-30 00:09 → ENRESERV 06-30 00:12 → 5EAST 06-30 01:25
PROVIDERS: Emergency Medicine; Physician Assistant; Student in an Organized Health Care Education/Training Program
DX: J15.9 Unspecified bacterial pneumonia (principal); R78.81 Bacteremia; F10.229 Alcohol dependence with intoxication, unspecified; I10 Essential (primary) hypertension; J44.0 Chronic obstructive pulmonary disease with (acute) lower respiratory infection; I48.2 Chronic atrial fibrillation; I71.2 Thoracic aortic aneurysm, without rupture; F17.200 Nicotine dependence, unspecified, uncomplicated; F12.10 Cannabis abuse, uncomplicated; E78.5 Hyperlipidemia, unspecified; Y90.8 Blood alcohol level of 240 mg/100 ml or more; I35.1 Nonrheumatic aortic (valve) insufficiency; Z86.711 Personal history of pulmonary embolism; Z91.19 Patient's noncompliance with other medical treatment and regimen; Z86.718 Personal history of other venous thrombosis and embolism
CPT/HCPCS: 71045; 71250; 80048; 80053; 80162; 81003; 83605; 83690; 83735; 85025; 85027; 85610; 85730; 87040; 87086; 87449; 93005; 94640; 99281; 99285; G0480; J1650; J1956; J2060; J2405; J2543; J3370; J3411; J3475; J7030; J7050